=== PATIENT | female | born 1950 | race Caucasian/White ===

== ENCOUNTER 2017-12-10 | Inpatient (IN) | payer MEDICARE, MEDICAID ==
[2017-12-10] VITALS (7 sets, daily range): BP systolic 108–134; BP diastolic 56–86
[~2017-12-10] VITALS: Ht 167.6 cm; Wt 77.1 kg
--- NOTE | 2017-12-10 00:05 | Emergency Room Report ---
History of Present Illness General Chief Complaint: Dyspnea/Respdistress Source: Patient Present Illness HPI Patient presents by paramedics for complaints of shortness of breath Patient was found at a nearby park Obtaining full history is limited as the patient presents in respiratory distress Unknown medical history unknown medications Patient also had some midline chest pain Patient is coughing during triage denies any fevers denies any rash History of present illness is limited however Allergies: Coded Allergies: No Known Allergies (Unverified , 12/09/17) Patient History Limited by: medical condition Past Medical History: see triage record Pertinent Family History: unable to obtain Last Menstrual Period: na Now: No Reviewed Nursing Documentation: PMH: Agreed; PSxH: Agreed Nursing Documentation-PMH Past Medical History: No History, Except For Hx Hypertension: Yes Hx Asthma: Yes Hx COPD: Yes Review of Systems All Other Systems: limited - Other than the ones mentioned in the history of present illness all others are reviewed however they do stay limited due to the patient's mental status Physical Exam Vital Signs Date Time Temp Pulse Resp B/P (MAP) Pulse Ox O2 Delivery O2 Flow Rate FiO2 12/09/17 23:47 97.5 106 24 134/60 97 Sp02 EP Interpretation: reviewed, normal General Appearance: moderate distress - Appears short of breath Head: normocephalic, atraumatic Eyes: bilateral eye PERRL, bilateral eye EOMI ENT: hearing grossly normal, normal pharynx, TMs + canals normal, uvula midline Neck: full range of motion, supple, no meningismus, no bony tend Respiratory: no retraction, no accessory muscle use, wheezing - And crackles bilaterall, tachypneic Cardiovascular #1: normal peripheral pulses, regular rate, rhythm, no edema, no gallop, no JVD, no murmur Gastrointestinal: normal bowel sounds, non tender, soft, no mass, no organomegaly, non-distended, no guarding, no hernia, no pulsatile mass, no rebound Genitourinary: no CVA tenderness Musculoskeletal: normal inspection Neurologic: oriented x3, responsive, test center administrator III-XII nml as tested, motor strength/ tone normal, sensory intact Psychiatric: mood/affect normal Skin: normal color, no rash, warm/dry, palpation normal Lymphatic: normal inspection, no adenopathy Medical Decision Making Diagnostic Impression: Primary Impression: Dyspnea Additional Impression: Pneumonia ER Course Patient is a fairly complex patient with multiple differential to consideration including but not limited to cardiac cardiopulmonary and vascular emergencies Patient's x-ray shows concerning findings of possible infiltrate Blood work reveals elevated lactic acid patient given further IV hydration and antibiotics secondary to insurance request patient is transferred for continued inpatient care Labs Test 12/10/17 00:10 12/10/17 02:20 White Blood Count 8.8 K/UL (4.8-10.8) Red Blood Count 4.46 M/UL (4.20-5.40) Hemoglobin 13.2 G/DL (12.0-16.0) Hematocrit 38.6 % (37.0-47.0) Mean Corpuscular Volume 86 FL (80-99) Mean Corpuscular Hemoglobin 29.5 PG (27.0-31.0) Mean Corpuscular Hemoglobin Concent 34.1 G/DL (32.0-36.0) Red Cell Distribution Width 11.9 % (11.6-14.8) Platelet Count 270 K/UL (150-450) Mean Platelet Volume 8.2 FL (6.5-10.1) Neutrophils (%) (Auto) 59.5 % (45.0-75.0) Lymphocytes (%) (Auto) 32.7 % (20.0-45.0) Monocytes (%) (Auto) 6.6 % (1.0-10.0) Eosinophils (%) (Auto) 0.2 % (0.0-3.0) Basophils (%) (Auto) 1.1 % (0.0-2.0) Sodium Level 143 MMOL/L (136-145) Potassium Level 3.4 MMOL/L (3.5-5.1) Chloride Level 103 MMOL/L (98-107) Carbon Dioxide Level 23 MMOL/L (21-32) Anion Gap 17 mmol/L (5-15) Blood Urea Nitrogen 16 mg/dL (7-18) Creatinine 1.3 MG/DL (0.55-1.30) Estimat Glomerular Filtration Rate 41.0 mL/min (>60) Glucose Level 137 MG/DL (74-106) Lactic Acid Level 5.90 mmol/L (0.4-2.0) Calcium Level 10.1 MG/DL (8.5-10.1) Total Bilirubin 0.4 MG/DL (0.2-1.0) Aspartate Amino Transf (AST/SGOT) 19 U/L (15-37) Alanine Aminotransferase (ALT/SGPT) 22 U/L (12-78) Alkaline Phosphatase 79 U/L (46-116) Total Creatine Kinase 188 U/L (26-308) Creatine Kinase MB 1.6 NG/ML (0.0-3.6) Creatine Kinase MB Relative Index 0.8 Troponin I 0.000 ng/mL (0.000-0.056) Pro-B-Type Natriuretic Peptide 271 pg/mL (0-125) Total Protein 7.9 G/DL (6.4-8.2) Albumin 3.9 G/DL (3.4-5.0) Globulin 4.0 g/dL Albumin/Globulin Ratio 1.0 (1.0-2.7) Lipase 154 U/L (73-393) Rhythm Strip Diag. Results EP Interpretation: yes - 1 Rate: 110 Rhythm: no PVC's, no ectopy, other - Sinus tach Chest X-Ray Diagnostic Results Chest X-Ray Diagnostic Results : Chest X-Ray Ordered: Yes # of Views/Limited/Complete: 1 View Indication: Shortness of Breath EP Interpretation: Yes Interpretation: no effusion, no pneumothorax, other - Bilateral atelectasis Impression: Other - Bilateral Atelectasis/infiltrated Last Vital Signs Date Time Temp Pulse Resp B/P (MAP) Pulse Ox O2 Delivery O2 Flow Rate FiO2 12/09/17 23:47 97.5 106 24 134/60 97 Status: improved [facility] Condition: Improved Darrian Green DO Dec 10, 2017 00:05
[2017-12-10] MEDS ORDERED: Ipratropium 0.02% Inh Soln 2.5ml UD HHN ONE (00:15)
[2017-12-10] MEDS ORDERED: LORazepam Inj 2mg/ml 1ml IV ONE (00:15)
[2017-12-10] MEDS ORDERED: Albuterol ud Inhalation HHN ONE (00:15)
[2017-12-10 00:27] LABS: BASOPHILS % (AUTO) 1.1 % (0.0-2.0); EOSINOPHILS % (AUTO) 0.2 % (0.0-3.0); HEMATOCRIT 38.6 % (37.0-47.0); HEMOGLOBIN 13.2 G/DL (12.0-16.0); LYMPHOCYTES % (AUTO) 32.7 % (20.0-45.0); MEAN CORPUSCULAR VOLUME 86 FL (80-99); MONOCYTES % (AUTO) 6.6 % (1.0-10.0); NEUTROPHILS % (AUTO) 59.5 % (45.0-75.0); PLATELET COUNT 270 K/UL (150-450); RED BLOOD COUNT 4.46 M/UL (4.20-5.40); RED CELL DISTRIBUTION WIDTH 11.9 % (11.6-14.8); WHITE BLOOD COUNT 8.8 K/UL (4.8-10.8)
--- NOTE | 2017-12-10 00:36 | Diagnostic Imaging Report ---
EXAM: XR Chest, 1 View CLINICAL HISTORY: SOB TECHNIQUE: Frontal view of the chest. COMPARISON: No relevant prior studies available. FINDINGS: Lungs: No focal consolidation. Pleural space: Unremarkable. No pneumothorax. Heart: Cardiomegaly. Mediastinum: Unremarkable. Bones/joints: Chronic right rib fractures. IMPRESSION: No focal consolidation.
[2017-12-10 00:43] LABS: ANION GAP 17 mmol/L (5-15); BLOOD UREA NITROGEN 16 mg/dL (7-18); CALCIUM 10.1 MG/DL (8.5-10.1); CARBON DIOXIDE 23 MMOL/L (21-32); CHLORIDE 103 MMOL/L (98-107); CREATININE 1.3 MG/DL (0.55-1.30); POTASSIUM 3.4 MMOL/L (3.5-5.1); SODIUM 143 MMOL/L (136-145)
[2017-12-10 00:57] LABS: ALANINE AMINOTRANSFERASE 22 U/L (12-78); ALBUMIN 3.9 G/DL (3.4-5.0); ALKALINE PHOSPHATASE 79 U/L (46-116); ASPARTATE AMINO TRANSFERASE 19 U/L (15-37); BILIRUBIN,TOTAL 0.4 MG/DL (0.2-1.0); CKMB 1.6 NG/ML (0.0-3.6); CREATINE KINASE 188 U/L (26-308)
[2017-12-10] MEDS: Aspirin Baby 81mg ORAL SCH (09:17)
[2017-12-10] MEDS: Enoxaparin 40mg Inj SUBQ SCH (09:19)
--- NOTE | 2017-12-10 13:53 | Infectious Diseases Prog Note ---
Assessment/Plan Problems: (1) Pneumonia Assessment & Plan: with cough productive and wheezing, will start levaquin empirically and send sputum culture . (2) Dyspnea Assessment & Plan: suspect due to the above, V/Q scan is pending to rule out PE , will start levaquin to cover for pneumonia/bronchitis , continue inhalers as needed (3) COPD (chronic obstructive pulmonary disease) with acute bronchitis Assessment & Plan: will start antibiotics, continue inhales and oxygen as needed Subjective Allergies: Coded Allergies: No Known Allergies (Unverified , 12/09/17) Objective Vital Signs Last 24 Hour Vital Signs Date Time Temp Pulse Resp B/P (MAP) Pulse Ox O2 Delivery O2 Flow Rate FiO2 12/10/17 12:00 98.3 92 21 120/71 (87) 100 12/10/17 12:00 76 12/10/17 11:06 Venturi Mask 5.0 12/10/17 08:00 87 12/10/17 08:00 98.7 103 20 112/75 (87) 100 12/10/17 06:18 98.0 90 18 118/83 99 Room Air 5.0 100 12/10/17 04:30 98.0 83 16 111/80 100 Simple Mask 10.0 12/10/17 02:40 97.6 83 16 108/86 100 Simple Mask 10.0 12/10/17 00:40 108 23 98 Room Air 21 12/10/17 00:22 97.6 90 24 134/60 100 Simple Mask 10.0 12/10/17 00:22 90 30 Simple Mask 10.0 12/10/17 00:17 89 24 100 Simple Mask 10.0 12/10/17 00:11 89 24 Simple Mask 10.0 12/09/17 23:47 97.5 106 24 134/60 97 Height (Feet): 5 Height (Inches): 6.00 Weight (Pounds): 170 Microbiology Date/Time Source Procedure Growth Status 12/10/17 00:12 Nasal Nares Influenza Types A,B Antigen (KEISHA) - Final Complete Laboratory Tests Test 12/10/17 00:10 12/10/17 02:20 White Blood Count 8.8 K/UL (4.8-10.8) Red Blood Count 4.46 M/UL (4.20-5.40) Hemoglobin 13.2 G/DL (12.0-16.0) Hematocrit 38.6 % (37.0-47.0) Mean Corpuscular Volume 86 FL (80-99) Mean Corpuscular Hemoglobin 29.5 PG (27.0-31.0) Mean Corpuscular Hemoglobin Concent 34.1 G/DL (32.0-36.0) Red Cell Distribution Width 11.9 % (11.6-14.8) Platelet Count 270 K/UL (150-450) Mean Platelet Volume 8.2 FL (6.5-10.1) Neutrophils (%) (Auto) 59.5 % (45.0-75.0) Lymphocytes (%) (Auto) 32.7 % (20.0-45.0) Monocytes (%) (Auto) 6.6 % (1.0-10.0) Eosinophils (%) (Auto) 0.2 % (0.0-3.0) Basophils (%) (Auto) 1.1 % (0.0-2.0) Sodium Level 143 MMOL/L (136-145) Potassium Level 3.4 MMOL/L (3.5-5.1) L Chloride Level 103 MMOL/L (98-107) Carbon Dioxide Level 23 MMOL/L (21-32) Anion Gap 17 mmol/L (5-15) H Blood Urea Nitrogen 16 mg/dL (7-18) Creatinine 1.3 MG/DL (0.55-1.30) Estimat Glomerular Filtration Rate 41.0 mL/min (>60) Glucose Level 137 MG/DL (74-106) H Lactic Acid Level 5.90 mmol/L (0.4-2.0) H 2.20 mmol/L (0.66-2.22) Calcium Level 10.1 MG/DL (8.5-10.1) Total Bilirubin 0.4 MG/DL (0.2-1.0) Aspartate Amino Transf (AST/SGOT) 19 U/L (15-37) Alanine Aminotransferase (ALT/SGPT) 22 U/L (12-78) Alkaline Phosphatase 79 U/L (46-116) Total Creatine Kinase 188 U/L (26-308) Creatine Kinase MB 1.6 NG/ML (0.0-3.6) Creatine Kinase MB Relative Index 0.8 Troponin I 0.000 ng/mL (0.000-0.056) Pro-B-Type Natriuretic Peptide 271 pg/mL (0-125) H Total Protein 7.9 G/DL (6.4-8.2) Albumin 3.9 G/DL (3.4-5.0) Globulin 4.0 g/dL Albumin/Globulin Ratio 1.0 (1.0-2.7) Lipase 154 U/L (73-393) Current Medications Medications (Trade) Dose Ordered Sig/Palomo Route PRN Reason Start Time Stop Time Status Last Admin Dose Admin Acetaminophen (Tylenol) 650 mg Q4H PRN ORAL Mild Pain (Pain Scale 1-3) 12/10/17 08:00 01/09/18 07:59 12/10/17 09:37 Aspirin (ASA) 81 mg DAILY ORAL 12/10/17 09:00 01/09/18 08:59 12/10/17 09:17 Atenolol (Tenormin) 50 mg BID ORAL 12/10/17 18:00 01/09/18 17:59 Dextrose (Dextrose 50%) 25 ml Q30M PRN IV Hypoglycemia 12/10/17 08:00 01/09/18 07:59 Dextrose (Dextrose 50%) 50 ml Q30M PRN IV Hypoglycemia 12/10/17 08:00 01/09/18 07:59 Enoxaparin Sodium (Lovenox) 40 mg Q24H SUBQ 12/10/17 09:00 01/09/18 08:59 12/10/17 09:19 Famotidine (Pepcid) 40 mg DAILY ORAL 12/10/17 09:00 01/09/18 08:59 12/10/17 09:17 Ondansetron HCl (Zofran) 4 mg Q6H PRN IVP Nausea & Vomiting 12/10/17 08:00 01/09/18 07:59 Sodium Chloride 1,000 ml @ 50 mls/hr Q20H IVLG 12/10/17 08:54 01/09/18 08:53 12/10/17 09:17 Deonna Barkley M.D. Dec 10, 2017 13:53
--- NOTE | 2017-12-10 14:30 | History and Physical Report ---
DATE OF ADMISSION: 12/10/2017 REASON FOR ADMISSION: 1. Chest pain. 2. Shortness of breath. HISTORY OF PRESENT ILLNESS: The patient is a 67-year-old female, who presented to the emergency room for further evaluation and care of shortness of breath. The patient stated it has been chronic for the past two or three weeks. She was found by a nearby park. She was complaining of some mild shortness of breath with productive cough. She was admitted through the emergency room for possibility of pneumonia. She is lying comfortably with non-rebreather. ALLERGIES: No known drug allergies. PAST MEDICAL HISTORY: 1. Hypertension. 2. Asthma. 3. COPD. FAMILY HISTORY: Positive for hypertension. PAST SURGICAL HISTORY: Unobtainable. REVIEW OF SYSTEMS: NEUROLOGIC: The patient denies headache, change in vision, syncope or presyncopal episodes. CARDIOVASCULAR: The patient was having mild chest pressure, pain. No palpitations. PULMONARY: Shortness of breath with nonproductive cough. GASTROINTESTINAL/GENITOURINARY: No changes in urinary or bowel habits. No nausea, vomiting, or diarrhea. ENDOCRINOLOGY: No night sweats, fevers, or chills. LABORATORY DATA: Laboratories dated December 10, 2017, sodium 143, potassium 3.4, chloride 103, bicarb 23, BUN 16, and creatinine 1.3. Troponin 0. White cell count 8.8, hemoglobin 13.2, and platelet count 270. PHYSICAL EXAMINATION: VITAL SIGNS: Blood pressure 118/83, respiratory rate 18, pulse 90, temperature 98.0, and 100% oxygen saturation on non-rebreather. GENERAL: The patient awake, in mild distress. HEENT: Extraocular muscles intact. No lymphadenopathy noted. CARDIOVASCULAR: S1 and S2. No rubs or gallops. PULMONARY: upper rhonchi with good airway movement in all lung yeager with mild expiratory wheezing. ABDOMEN: Nondistended and nontender. EXTREMITIES: No edema. ASSESSMENT AND PLAN: 1. Chest pain/acute coronary syndrome. Troponin 0. At this time, the patient will be initiated on aspirin and beta-nancy and Cardiology Dr. Vaughan, has been consulted. 2. Shortness of breath, possibility of pneumonia. The patient has been given Levaquin with Infectious Disease to follow. VQ scan to rule out possibility of pulmonary embolism. Along with Pulmonary to evaluate underlying cause of acute shortness of breath. 3. Acute kidney injury versus chronic kidney disease. Creatinine 1.3. At this time, IV fluids have been initiated. 4. Hypertension. We will continue home dose atenolol. 5. DVT prophylaxis with Lovenox. Catalino Tinsley MD DR: CHANDLER JOB#: [id number] CC: SAMMI
--- NOTE | 2017-12-10 16:30 | Consultation ---
History of Present Illness General Date patient seen: Dec 10, 2017 Time patient seen: 16:20 Chief Complaint: Dyspnea/Respdistress Present Illness HPI 67 year old French female complain of dyspnea, recently was Dx w/ Right lobe PNA. She has hx of COPD, THIERRY. Pt placed on O2 mask @ 10 lpm. CXR No focal consolidation, troponin negative. Allergies: Coded Allergies: No Known Allergies (Unverified , 12/09/17) Patient History Healthcare decision maker Resuscitation status Advanced Directive on File Review of Systems Constitutional: Reports: no symptoms Eye: Reports: no symptoms ENT: Reports: no symptoms Respiratory: Reports: cough, shortness of breath, stridor, EDWARDS, sputum Cardiovascular: Reports: no symptoms Gastrointestinal: Reports: no symptoms Genitourinary: Reports: no symptoms Musculoskeletal: Reports: no symptoms Skin: Reports: no symptoms Psychiatric: Reports: no symptoms Neurological: Reports: no symptoms Endocrine: Reports: no symptoms Hematologic/Lymphatic: Reports: no symptoms Physical Exam General Appearance: no apparent distress, alert Lines, tubes and drains: peripheral HEENT: normocephalic, atraumatic, mucous membranes moist, PERRL, EOMI, pharynx normal, supple, no JVD Neck: non-tender, normal alignment, supple, normal inspection Respiratory/Chest: chest wall non-tender, lungs clear, normal breath sounds, no respiratory distress Cardiovascular/Chest: normal peripheral pulses, normal rate Abdomen: normal bowel sounds, non tender Extremities: normal range of motion, non-tender Neurologic: calibration specialist II-XII grossly normal, no motor/sensory deficits Last 24 Hour Vital Signs Date Time Temp Pulse Resp B/P (MAP) Pulse Ox O2 Delivery O2 Flow Rate FiO2 12/10/17 12:00 98.3 92 21 120/71 (87) 100 12/10/17 12:00 76 12/10/17 11:06 Venturi Mask 5.0 12/10/17 08:00 87 12/10/17 08:00 98.7 103 20 112/75 (87) 100 12/10/17 06:18 98.0 90 18 118/83 99 Room Air 5.0 100 12/10/17 04:30 98.0 83 16 111/80 100 Simple Mask 10.0 12/10/17 02:40 97.6 83 16 108/86 100 Simple Mask 10.0 12/10/17 00:40 108 23 98 Room Air 21 12/10/17 00:22 97.6 90 24 134/60 100 Simple Mask 10.0 12/10/17 00:22 90 30 Simple Mask 10.0 12/10/17 00:17 89 24 100 Simple Mask 10.0 12/10/17 00:11 89 24 Simple Mask 10.0 12/09/17 23:47 97.5 106 24 134/60 97 Laboratory Tests Test 12/10/17 00:10 12/10/17 02:20 12/10/17 14:40 White Blood Count 8.8 K/UL (4.8-10.8) Red Blood Count 4.46 M/UL (4.20-5.40) Hemoglobin 13.2 G/DL (12.0-16.0) Hematocrit 38.6 % (37.0-47.0) Mean Corpuscular Volume 86 FL (80-99) Mean Corpuscular Hemoglobin 29.5 PG (27.0-31.0) Mean Corpuscular Hemoglobin Concent 34.1 G/DL (32.0-36.0) Red Cell Distribution Width 11.9 % (11.6-14.8) Platelet Count 270 K/UL (150-450) Mean Platelet Volume 8.2 FL (6.5-10.1) Neutrophils (%) (Auto) 59.5 % (45.0-75.0) Lymphocytes (%) (Auto) 32.7 % (20.0-45.0) Monocytes (%) (Auto) 6.6 % (1.0-10.0) Eosinophils (%) (Auto) 0.2 % (0.0-3.0) Basophils (%) (Auto) 1.1 % (0.0-2.0) Sodium Level 143 MMOL/L (136-145) Potassium Level 3.4 MMOL/L (3.5-5.1) L Chloride Level 103 MMOL/L (98-107) Carbon Dioxide Level 23 MMOL/L (21-32) Anion Gap 17 mmol/L (5-15) H Blood Urea Nitrogen 16 mg/dL (7-18) Creatinine 1.3 MG/DL (0.55-1.30) Estimat Glomerular Filtration Rate 41.0 mL/min (>60) Glucose Level 137 MG/DL (74-106) H Lactic Acid Level 5.90 mmol/L (0.4-2.0) H 2.20 mmol/L (0.66-2.22) Calcium Level 10.1 MG/DL (8.5-10.1) Total Bilirubin 0.4 MG/DL (0.2-1.0) Aspartate Amino Transf (AST/SGOT) 19 U/L (15-37) Alanine Aminotransferase (ALT/SGPT) 22 U/L (12-78) Alkaline Phosphatase 79 U/L (46-116) Total Creatine Kinase 188 U/L (26-308) Creatine Kinase MB 1.6 NG/ML (0.0-3.6) Creatine Kinase MB Relative Index 0.8 Troponin I 0.000 ng/mL (0.000-0.056) Pro-B-Type Natriuretic Peptide 271 pg/mL (0-125) H Total Protein 7.9 G/DL (6.4-8.2) Albumin 3.9 G/DL (3.4-5.0) Globulin 4.0 g/dL Albumin/Globulin Ratio 1.0 (1.0-2.7) Lipase 154 U/L (73-393) Urine Opiates Screen Negative (NEGATIVE) Urine Barbiturates Screen Negative (NEGATIVE) Phencyclidine (PCP) Screen Negative (NEGATIVE) Urine Amphetamines Screen Negative (NEGATIVE) Urine Benzodiazepines Screen Negative (NEGATIVE) Urine Cocaine Screen Negative (NEGATIVE) Urine Marijuana (THC) Screen Negative (NEGATIVE) Microbiology Date/Time Source Procedure Growth Status 12/10/17 00:12 Nasal Nares Influenza Types A,B Antigen (KEISHA) - Final Complete Height (Feet): 5 Height (Inches): 6.00 Weight (Pounds): 170 Medications Current Medications Medications (Trade) Dose Ordered Sig/Palomo Route PRN Reason Start Time Stop Time Status Last Admin Dose Admin Acetaminophen (Tylenol) 650 mg Q4H PRN ORAL Mild Pain (Pain Scale 1-3) 12/10/17 08:00 01/09/18 07:59 12/10/17 09:37 Aspirin (ASA) 81 mg DAILY ORAL 12/10/17 09:00 01/09/18 08:59 12/10/17 09:17 Atenolol (Tenormin) 50 mg BID ORAL 12/10/17 18:00 01/09/18 17:59 Dextrose (Dextrose 50%) 25 ml Q30M PRN IV Hypoglycemia 12/10/17 08:00 01/09/18 07:59 Dextrose (Dextrose 50%) 50 ml Q30M PRN IV Hypoglycemia 12/10/17 08:00 01/09/18 07:59 Enoxaparin Sodium (Lovenox) 40 mg Q24H SUBQ 12/10/17 09:00 01/09/18 08:59 12/10/17 09:19 Famotidine (Pepcid) 40 mg DAILY ORAL 12/10/17 09:00 01/09/18 08:59 12/10/17 09:17 Levofloxacin 150 ml @ 100 mls/hr Q24H IVPB 12/11/17 00:00 12/18/17 00:00 Ondansetron HCl (Zofran) 4 mg Q6H PRN IVP Nausea & Vomiting 12/10/17 08:00 01/09/18 07:59 Sodium Chloride 1,000 ml @ 50 mls/hr Q20H IVLG 12/10/17 08:54 01/09/18 08:53 12/10/17 09:17 Assessment/Plan Status: stable, progressing Assessment/Plan Assessment (1) Pneumonia (2) Dyspnea (3) COPD (chronic obstructive pulmonary disease) with acute bronchitis (4) Chest pain Plan Serial Troponin/EKG Aspirin Statin nitro prn chest pain Outpatient stress test Abx per ID for PNA IV fluids Continue atenolol Echocardiogram DVT/GI ppx Migel Vaughan MD Dec 10, 2017 16:30
--- NOTE | 2017-12-10 16:42 | Diagnostic Imaging Report ---
EXAM: NM Lung Perfusion and Ventilation Scan CLINICAL HISTORY: Shortness of breath TECHNIQUE: Nuclear Medicine ventilation and perfusion images of the lungs were obtained in multiple projections following inhalation of 42 mCi Tc99m- DTPA at 15:30, followed by injection of 5.8 mCi of Tc99m MAA via left antecubital IV. COMPARISON: Chest x-ray dated 12/10/18 FINDINGS: Ventilation: Abnormal central cupping of the radiotracer on both perfusion and ventilation imaging. No ventilation defects. Perfusion: Abnormal central clumping of the radiotracer on both perfusion and ventilation imaging. This limits evaluation for perfusion defects. No large segmental perfusion defect identified. IMPRESSION: Abnormal central clumping of the radiotracer on both perfusion and ventilation imaging. This is nonspecific and may be related to micro- aggregation of the radiotracer related to technical factors although this finding can also be seen with COPD. However, this exam remains nondiagnostic for evaluation of PE.
--- NOTE | 2017-12-10 17:49 | Pulmonology Progress Note ---
Assessment/Plan Assessment/Plan Pulmonary Consultation HPI Patient is a 67 year old French female complain of dyspnea, recently was Dx w/ Right lobe PNA. She has hx of COPD, THIERRY. Pt placed on O2 mask @ 10 lpm. CXR No focal consolidation, troponin negative. Allergies: Coded Allergies: No Known Allergies (Unverified , 12/09/17) Patient History Healthcare decision maker Resuscitation status Advanced Directive on File Review of Systems Constitutional: Reports: no symptoms Eye: Reports: no symptoms ENT: Reports: no symptoms Respiratory: Reports: cough, shortness of breath, stridor, EDWARDS, sputum Cardiovascular: Reports: no symptoms Gastrointestinal: Reports: no symptoms Genitourinary: Reports: no symptoms Musculoskeletal: Reports: no symptoms Skin: Reports: no symptoms Psychiatric: Reports: no symptoms Neurological: Reports: no symptoms Endocrine: Reports: no symptoms Hematologic/Lymphatic: Reports: no symptoms Physical Exam General Appearance: no apparent distress, alert Lines, tubes and drains: peripheral HEENT: normocephalic, atraumatic, mucous membranes moist, PERRL, EOMI, pharynx normal, supple, no JVD Neck: non-tender, normal alignment, supple, normal inspection Respiratory/Chest: chest wall non-tender, lungs clear, normal breath sounds, no respiratory distress Cardiovascular/Chest: normal peripheral pulses, normal rate Abdomen: normal bowel sounds, non tender Extremities: normal range of motion, non-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, no motor/sensory deficits Last 24 Hour Vital Signs Date Time Temp Pulse Resp B/P (MAP) Pulse Ox O2 Delivery O2 Flow Rate FiO2 12/10/17 12:00 98.3 92 21 120/71 (87) 100 12/10/17 12:00 76 12/10/17 11:06 Venturi Mask 5.0 12/10/17 08:00 87 12/10/17 08:00 98.7 103 20 112/75 (87) 100 12/10/17 06:18 98.0 90 18 118/83 99 Room Air 5.0 100 12/10/17 04:30 98.0 83 16 111/80 100 Simple Mask 10.0 12/10/17 02:40 97.6 83 16 108/86 100 Simple Mask 10.0 12/10/17 00:40 108 23 98 Room Air 21 10/27/18 00:22 97.6 90 24 134/60 100 Simple Mask 10.0 12/10/17 00:22 90 30 Simple Mask 10.0 12/10/17 00:17 89 24 100 Simple Mask 10.0 12/10/17 00:11 89 24 Simple Mask 10.0 12/09/17 23:47 97.5 106 24 134/60 97 Laboratory Tests Test 12/10/17 00:10 12/10/17 02:20 12/10/17 14:40 White Blood Count 8.8 K/UL (4.8-10.8) Red Blood Count 4.46 M/UL (4.20-5.40) Hemoglobin 13.2 G/DL (12.0-16.0) Hematocrit 38.6 % (37.0-47.0) Mean Corpuscular Volume 86 FL (80-99) Mean Corpuscular Hemoglobin 29.5 PG (27.0-31.0) Mean Corpuscular Hemoglobin Concent 34.1 G/DL (32.0-36.0) Red Cell Distribution Width 11.9 % (11.6-14.8) Platelet Count 270 K/UL (150-450) Mean Platelet Volume 8.2 FL (6.5-10.1) Neutrophils (%) (Auto) 59.5 % (45.0-75.0) Lymphocytes (%) (Auto) 32.7 % (20.0-45.0) Monocytes (%) (Auto) 6.6 % (1.0-10.0) Eosinophils (%) (Auto) 0.2 % (0.0-3.0) Basophils (%) (Auto) 1.1 % (0.0-2.0) Sodium Level 143 MMOL/L (136-145) Potassium Level 3.4 MMOL/L (3.5-5.1) L Chloride Level 103 MMOL/L (98-107) Carbon Dioxide Level 23 MMOL/L (21-32) Anion Gap 17 mmol/L (5-15) H Blood Urea Nitrogen 16 mg/dL (7-18) Creatinine 1.3 MG/DL (0.55-1.30) Estimat Glomerular Filtration Rate 41.0 mL/min (>60) Glucose Level 137 MG/DL (74-106) H Lactic Acid Level 5.90 mmol/L (0.4-2.0) H 2.20 mmol/L (0.66-2.22) Calcium Level 10.1 MG/DL (8.5-10.1) Total Bilirubin 0.4 MG/DL (0.2-1.0) Aspartate Amino Transf (AST/SGOT) 19 U/L (15-37) Alanine Aminotransferase (ALT/SGPT) 22 U/L (12-78) Alkaline Phosphatase 79 U/L (46-116) Total Creatine Kinase 188 U/L (26-308) Creatine Kinase MB 1.6 NG/ML (0.0-3.6) Creatine Kinase MB Relative Index 0.8 Troponin I 0.000 ng/mL (0.000-0.056) Pro-B-Type Natriuretic Peptide 271 pg/mL (0-125) H Total Protein 7.9 G/DL (6.4-8.2) Albumin 3.9 G/DL (3.4-5.0) Globulin 4.0 g/dL Albumin/Globulin Ratio 1.0 (1.0-2.7) Lipase 154 U/L (73-393) Urine Opiates Screen Negative (NEGATIVE) Urine Barbiturates Screen Negative (NEGATIVE) Phencyclidine (PCP) Screen Negative (NEGATIVE) Urine Amphetamines Screen Negative (NEGATIVE) Urine Benzodiazepines Screen Negative (NEGATIVE) Urine Cocaine Screen Negative (NEGATIVE) Urine Marijuana (THC) Screen Negative (NEGATIVE) Microbiology Date/Time Source Procedure Growth Status 12/10/17 00:12 Nasal Nares Influenza Types A,B Antigen (KEISHA) - Final Complete CXR: No infiltgrates VQ: Non diagnostic Height (Feet): 5 Height (Inches): 6.00 Weight (Pounds): 170 Medications Current Medications Medications (Trade) Dose Ordered Sig/Palomo Route PRN Reason Start Time Stop Time Status Last Admin Dose Admin Acetaminophen (Tylenol) 650 mg Q4H PRN ORAL Mild Pain (Pain Scale 1-3) 12/10/17 08:00 01/09/18 07:59 12/10/17 09:37 Aspirin (ASA) 81 mg DAILY ORAL 12/10/17 09:00 01/09/18 08:59 12/10/17 09:17 Atenolol (Tenormin) 50 mg BID ORAL 12/10/17 18:00 01/09/18 17:59 Dextrose (Dextrose 50%) 25 ml Q30M PRN IV Hypoglycemia 12/10/17 08:00 01/09/18 07:59 Dextrose (Dextrose 50%) 50 ml Q30M PRN IV Hypoglycemia 12/10/17 08:00 01/09/18 07:59 Enoxaparin Sodium (Lovenox) 40 mg Q24H SUBQ 12/10/17 09:00 01/09/18 08:59 12/10/17 09:19 Famotidine (Pepcid) 40 mg DAILY ORAL 12/10/17 09:00 01/09/18 08:59 12/10/17 09:17 Levofloxacin 150 ml @ 100 mls/hr Q24H IVPB 12/11/17 00:00 12/18/17 00:00 Ondansetron HCl (Zofran) 4 mg Q6H PRN IVP Nausea & Vomiting 12/10/17 08:00 01/09/18 07:59 Sodium Chloride 1,000 ml @ 50 mls/hr Q20H IVLG 12/10/17 08:54 01/09/18 08:53 12/10/17 09:17 Assessment (1) Pneumonia (2) Dyspnea (3) COPD (chronic obstructive pulmonary disease) with acute bronchitis (4) Chest pain Plan Continue Curret AB/HHN Titrate O2 Serial Troponin/EKG Aspirin Statin nitro prn chest pain Outpatient stress test Abx per ID for PNA IV fluids Continue atenolol Echocardiogram DVT/GI ppx Subjective ROS Limited/Unobtainable: Yes Allergies: Coded Allergies: No Known Allergies (Unverified , 12/09/17) Objective Last 24 Hour Vital Signs Date Time Temp Pulse Resp B/P (MAP) Pulse Ox O2 Delivery O2 Flow Rate FiO2 12/10/17 17:17 71 117/73 12/10/17 16:00 73 12/10/17 16:00 98.0 71 20 117/73 (88) 99 12/10/17 12:00 98.3 92 21 120/71 (87) 100 12/10/17 12:00 76 12/10/17 11:06 Venturi Mask 5.0 12/10/17 08:00 87 12/10/17 08:00 98.7 103 20 112/75 (87) 100 12/10/17 06:18 98.0 90 18 118/83 99 Room Air 5.0 100 12/10/17 04:30 98.0 83 16 111/80 100 Simple Mask 10.0 12/10/17 02:40 97.6 83 16 108/86 100 Simple Mask 10.0 12/10/17 00:40 108 23 98 Room Air 21 12/10/17 00:22 97.6 90 24 134/60 100 Simple Mask 10.0 12/10/17 00:22 90 30 Simple Mask 10.0 12/10/17 00:17 89 24 100 Simple Mask 10.0 12/10/17 00:11 89 24 Simple Mask 10.0 12/09/17 23:47 97.5 106 24 134/60 97 Microbiology Date/Time Source Procedure Growth Status 12/10/17 00:12 Nasal Nares Influenza Types A,B Antigen (KEISHA) - Final Complete Laboratory Tests 12/10/17 00:10: White Blood Count 8.8, Red Blood Count 4.46, Hemoglobin 13.2, Hematocrit 38.6, Mean Corpuscular Volume 86, Mean Corpuscular Hemoglobin 29.5, Mean Corpuscular Hemoglobin Concent 34.1, Red Cell Distribution Width 11.9, Platelet Count 270, Mean Platelet Volume 8.2, Neutrophils (%) (Auto) 59.5, Lymphocytes (%) (Auto) 32.7, Monocytes (%) (Auto) 6.6, Eosinophils (%) (Auto) 0.2, Basophils (%) (Auto ) 1.1, Sodium Level 143, Potassium Level 3.4L, Chloride Level 103, Carbon Dioxide Level 23, Anion Gap 17H, Blood Urea Nitrogen 16, Creatinine 1.3, Estimat Glomerular Filtration Rate 41.0, Glucose Level 137H, Lactic Acid Level 5.90H, Calcium Level 10.1, Total Bilirubin 0.4, Aspartate Amino Transf (AST/SGOT ) 19, Alanine Aminotransferase (ALT/SGPT) 22, Alkaline Phosphatase 79, Total Creatine Kinase 188, Creatine Kinase MB 1.6, Creatine Kinase MB Relative Index 0.8, Troponin I 0.000, Pro-B-Type Natriuretic Peptide 271H, Total Protein 7.9, Albumin 3.9, Globulin 4.0, Albumin/Globulin Ratio 1.0, Lipase 154 12/10/17 02:20: Lactic Acid Level 2.20 12/10/17 14:40: Urine Opiates Screen Negative, Urine Barbiturates Screen Negative, Phencyclidine (PCP) Screen Negative, Urine Amphetamines Screen Negative, Urine Benzodiazepines Screen Negative, Urine Cocaine Screen Negative, Urine Marijuana (THC) Screen Negative Current Medications Medications (Trade) Dose Ordered Sig/Palomo Route PRN Reason Start Time Stop Time Status Last Admin Dose Admin Acetaminophen (Tylenol) 650 mg Q4H PRN ORAL Mild Pain (Pain Scale 1-3) 12/10/17 08:00 01/09/18 07:59 12/10/17 09:37 Aspirin (ASA) 81 mg DAILY ORAL 12/10/17 09:00 01/09/18 08:59 12/10/17 09:17 Atenolol (Tenormin) 50 mg BID ORAL 12/10/17 18:00 01/09/18 17:59 12/10/17 17:17 Dextrose (Dextrose 50%) 25 ml Q30M PRN IV Hypoglycemia 12/10/17 08:00 01/09/18 07:59 Dextrose (Dextrose 50%) 50 ml Q30M PRN IV Hypoglycemia 12/10/17 08:00 01/09/18 07:59 Enoxaparin Sodium (Lovenox) 40 mg Q24H SUBQ 12/10/17 09:00 01/09/18 08:59 12/10/17 09:19 Famotidine (Pepcid) 40 mg DAILY ORAL 12/10/17 09:00 01/09/18 08:59 12/10/17 09:17 Levofloxacin 150 ml @ 100 mls/hr Q24H IVPB 12/11/17 00:00 12/18/17 00:00 Ondansetron HCl (Zofran) 4 mg Q6H PRN IVP Nausea & Vomiting 12/10/17 08:00 01/09/18 07:59 Sodium Chloride 1,000 ml @ 50 mls/hr Q20H IVLG 12/10/17 08:54 01/09/18 08:53 12/10/17 09:17 Migel Woo MD Dec 10, 2017 17:49
--- NOTE | 2017-12-10 22:45 | Consultation ---
DATE OF CONSULTATION: 12/10/2017 INFECTIOUS DISEASE CONSULTATION CONSULTING PHYSICIAN: Deonna Barkley M.D. REQUESTING PHYSICIAN: Catalino Tinsley M.D. REASON FOR CONSULTATION: Pneumonia with bronchitis. Recommendation for antibiotics treatment. HISTORY OF PRESENT ILLNESS: The patient is a 67-year-old, Norwegian-speaking female with past medical history of COPD, asthma, and hypertension was sent to [facility] by paramedics for shortness of breath and dyspnea [place]. The patient was short of breath. Paramedics were called via bystander and she was brought into [facility] emergency room for evaluation. The patient had temperature of 97.5 with pulse of 106, O2 saturation of 97% in the emergency room. She had wheezing and difficulty talking. She received some neck treatment, oxygen, and antibiotics and admitted to the hospital for further evaluation and management. An Infectious Disease consult was requested for antibiotics treatment and further care. REVIEW OF SYSTEMS: A 14-point of system reviewed were all negative apart from the one I mentioned above in my History and Physical. PAST MEDICAL HISTORY: Significant for COPD, asthma, and hypertension. PAST SURGICAL HISTORY: Not on record. SOCIAL HISTORY: Unable to obtain. The patient is Norwegian speaker. FAMILY HISTORY: Unable to obtain. ALLERGIES: She has no known allergy as per the records. LABORATORY AND DIAGNOSTIC DATA: Labs showed white count of 8.8, hemoglobin of 13.2, platelet count of 270. BUN of 16 and creatinine of 1.3. AST of 19, ALT of 22, alkaline phosphatase 79. Microbiology, influenza screening A and B both negative. IMAGING: Chest x-ray showed no focal consolidation, chronic right rib fractures. PHYSICAL EXAMINATION: VITAL SIGNS: Temperature 98.3, pulse 92, respirations 21, blood pressure 120/71, saturation 100% on Venturi mask with FiO2 of 100%. GENERAL: Middle-aged female, lying in bed, coughing and wheezing on Venturi mask. HEENT: Normocephalic atraumatic. Pupils reactive to light. Moist oral mucosa. No exudate. NECK: Supple. No lymphadenopathy. CARDIOVASCULAR: Regular rate and rhythm. No murmur or gallop. LUNGS: She had diminished breathing sound on both side with wheezing and crackles. Normal breathing efforts. ABDOMEN: Soft, nontender, nondistended. Normal bowel sounds. No hepatosplenomegaly or ascites. EXTREMITIES: Trace edema. No cyanosis. She had callus on the big toe. SKIN: No rash. No hives. ASSESSMENT AND RECOMMENDATION: 1. Pneumonia with productive cough and wheezing. We will start Levaquin empirically and send sputum culture. 2. Dyspnea suspect due to the above. V/Q scan is pending to rule out PE. We will start Levaquin to cover for pneumonia and bronchitis. Continue inhalers as needed. 3. COPD with acute bronchitis. We will start antibiotics. Continue inhaler and oxygen as needed. May need small dose of steroid. Thank you for the consultation. ID will continue to follow. Please feel free to call with any question. Deonna Barkley M.D. DR: Mitzy JOB#: [id number] CC:
--- NOTE | 2017-12-10 23:18 | Consultation ---
History of Present Illness General Chief Complaint: Dyspnea/Respdistress Present Illness HPI 67-year-old, Nauruan-speaking female with past medical history of COPD, asthma , and hypertension was bi to [facility] by paramedics for dyspnea. the pt has severe anxiety an panic attack like sxs. the pt stated that she was [facility] and now came back to [place] since her daughter kick her out and stated that they dont need her. the pt has insomnia and depressed mood. Allergies: Coded Allergies: No Known Allergies (Unverified , 12/09/17) Medication History Scheduled Atenolol* (Tenormin*), 50 MG ORAL Q12HR, (Reported) Pantoprazole* (Protonix*), 40 MG ORAL DAILY, (Reported) Patient History Limited by: medical condition History Provided By: Patient, Medical Record, PMD Healthcare decision maker Resuscitation status Advanced Directive on File Past Medical/Surgical History Past Medical/Surgical History: (1) Dyspnea (2) Pneumonia (3) COPD (chronic obstructive pulmonary disease) with acute bronchitis (4) Panic anxiety syndrome Review of Systems Psychiatric: Reports: prior hx, anxiety, depressed feelings Physical Exam General Appearance: alert, moderate distress, agitated Neurologic: oriented x 3, responsive, depressed affect Last 24 Hour Vital Signs Date Time Temp Pulse Resp B/P (MAP) Pulse Ox O2 Delivery O2 Flow Rate FiO2 12/10/17 17:17 71 117/73 12/10/17 16:00 73 12/10/17 16:00 98.0 71 20 117/73 (88) 99 12/10/17 12:00 98.3 92 21 120/71 (87) 100 12/10/17 12:00 76 12/10/17 11:06 Venturi Mask 5.0 12/10/17 08:00 87 12/10/17 08:00 98.7 103 20 112/75 (87) 100 12/10/17 06:18 98.0 90 18 118/83 99 Room Air 5.0 100 12/10/17 04:30 98.0 83 16 111/80 100 Simple Mask 10.0 12/10/17 02:40 97.6 83 16 108/86 100 Simple Mask 10.0 12/10/17 00:40 108 23 98 Room Air 21 12/10/17 00:22 97.6 90 24 134/60 100 Simple Mask 10.0 12/10/17 00:22 90 30 Simple Mask 10.0 12/10/17 00:17 89 24 100 Simple Mask 10.0 12/10/17 00:11 89 24 Simple Mask 10.0 12/09/17 23:47 97.5 106 24 134/60 97 Intake and Output 12/09/17 12/10/17 19:00 07:00 # Voids 1 Laboratory Tests Test 12/10/17 00:10 12/10/17 02:20 12/10/17 14:40 White Blood Count 8.8 K/UL (4.8-10.8) Red Blood Count 4.46 M/UL (4.20-5.40) Hemoglobin 13.2 G/DL (12.0-16.0) Hematocrit 38.6 % (37.0-47.0) Mean Corpuscular Volume 86 FL (80-99) Mean Corpuscular Hemoglobin 29.5 PG (27.0-31.0) Mean Corpuscular Hemoglobin Concent 34.1 G/DL (32.0-36.0) Red Cell Distribution Width 11.9 % (11.6-14.8) Platelet Count 270 K/UL (150-450) Mean Platelet Volume 8.2 FL (6.5-10.1) Neutrophils (%) (Auto) 59.5 % (45.0-75.0) Lymphocytes (%) (Auto) 32.7 % (20.0-45.0) Monocytes (%) (Auto) 6.6 % (1.0-10.0) Eosinophils (%) (Auto) 0.2 % (0.0-3.0) Basophils (%) (Auto) 1.1 % (0.0-2.0) Sodium Level 143 MMOL/L (136-145) Potassium Level 3.4 MMOL/L (3.5-5.1) L Chloride Level 103 MMOL/L (98-107) Carbon Dioxide Level 23 MMOL/L (21-32) Anion Gap 17 mmol/L (5-15) H Blood Urea Nitrogen 16 mg/dL (7-18) Creatinine 1.3 MG/DL (0.55-1.30) Estimat Glomerular Filtration Rate 41.0 mL/min (>60) Glucose Level 137 MG/DL (74-106) H Lactic Acid Level 5.90 mmol/L (0.4-2.0) H 2.20 mmol/L (0.66-2.22) Calcium Level 10.1 MG/DL (8.5-10.1) Total Bilirubin 0.4 MG/DL (0.2-1.0) Aspartate Amino Transf (AST/SGOT) 19 U/L (15-37) Alanine Aminotransferase (ALT/SGPT) 22 U/L (12-78) Alkaline Phosphatase 79 U/L (46-116) Total Creatine Kinase 188 U/L (26-308) Creatine Kinase MB 1.6 NG/ML (0.0-3.6) Creatine Kinase MB Relative Index 0.8 Troponin I 0.000 ng/mL (0.000-0.056) Pro-B-Type Natriuretic Peptide 271 pg/mL (0-125) H Total Protein 7.9 G/DL (6.4-8.2) Albumin 3.9 G/DL (3.4-5.0) Globulin 4.0 g/dL Albumin/Globulin Ratio 1.0 (1.0-2.7) Lipase 154 U/L (73-393) Urine Opiates Screen Negative (NEGATIVE) Urine Barbiturates Screen Negative (NEGATIVE) Phencyclidine (PCP) Screen Negative (NEGATIVE) Urine Amphetamines Screen Negative (NEGATIVE) Urine Benzodiazepines Screen Negative (NEGATIVE) Urine Cocaine Screen Negative (NEGATIVE) Urine Marijuana (THC) Screen Negative (NEGATIVE) Microbiology Date/Time Source Procedure Growth Status 12/10/17 00:12 Nasal Nares Influenza Types A,B Antigen (KEISHA) - Final Complete Height (Feet): 5 Height (Inches): 6.00 Weight (Pounds): 170 Medications Current Medications Medications (Trade) Dose Ordered Sig/Palomo Route PRN Reason Start Time Stop Time Status Last Admin Dose Admin Acetaminophen (Tylenol) 650 mg Q4H PRN ORAL Mild Pain (Pain Scale 1-3) 12/10/17 08:00 01/09/18 07:59 12/10/17 09:37 Aspirin (ASA) 81 mg DAILY ORAL 12/10/17 09:00 01/09/18 08:59 12/10/17 09:17 Atenolol (Tenormin) 50 mg BID ORAL 12/10/17 18:00 01/09/18 17:59 12/10/17 17:17 Dextrose (Dextrose 50%) 25 ml Q30M PRN IV Hypoglycemia 12/10/17 08:00 01/09/18 07:59 Dextrose (Dextrose 50%) 50 ml Q30M PRN IV Hypoglycemia 12/10/17 08:00 01/09/18 07:59 Enoxaparin Sodium (Lovenox) 40 mg Q24H SUBQ 12/10/17 09:00 01/09/18 08:59 12/10/17 09:19 Famotidine (Pepcid) 40 mg DAILY ORAL 12/10/17 09:00 01/09/18 08:59 12/10/17 09:17 Levofloxacin 150 ml @ 100 mls/hr Q24H IVPB 12/11/17 00:00 12/18/17 00:00 Ondansetron HCl (Zofran) 4 mg Q6H PRN IVP Nausea & Vomiting 12/10/17 08:00 01/09/18 07:59 Sodium Chloride 1,000 ml @ 50 mls/hr Q20H IVLG 12/10/17 08:54 01/09/18 08:53 12/10/17 09:17 Assessment/Plan Problem List: (1) Panic anxiety syndrome ICD Codes: F41.0 - Panic disorder [episodic paroxysmal anxiety] SNOMED: 098649770 Assessment/Plan lexapro 10mg q daily klonopin 1mg qhs provided ro/Mick Hardin MD Dec 10, 2017 23:18
[2017-12-10] MEDS ORDERED: HYDROcodone/Acetamin 10/325 tab ORAL PRN (23:45)
[2017-12-11] VITALS: BP 101/59
[2017-12-11] MEDS ORDERED: metroNIDAZOLE 500mg tab ORAL SCH ×3 (01:00→14:00)
[2017-12-11] MEDS: HYDROcodone/Acetamin 10/325 tab ORAL PRN ×3 (01:21→20:21)
[2017-12-11] MEDS: Albuterol/Ipratropium 3ml neb HHN SCH ×6 (03:26→23:30)
[2017-12-11 04:00] VITALS: BP 107/62
--- NOTE | 2017-12-11 07:10 | Nephrology Progress Note ---
Assessment/Plan Assessment/Plan A/P 1) SOB/PNA- Abx and inhalers - much improved - Pulm and ID to follow - DC en to SNF 2) Chest Pain- MD ruled out - appreciate cardiology assistance 3) Psy history- defer to psychiatry 4) DVT prophylaxis with lovenox 5) HTN stable All AM labs pending Subjective Date patient seen: Dec 11, 2017 Time patient seen: 07:07 ROS Limited/Unobtainable: No Respiratory: Reports: shortness of breath Allergies: Coded Allergies: No Known Allergies (Unverified , 12/09/17) Subjective Patient resting well and sleeping comfortably Objective Last 24 Hour Vital Signs Date Time Temp Pulse Resp B/P (MAP) Pulse Ox O2 Delivery O2 Flow Rate FiO2 12/11/17 04:00 58 12/11/17 04:00 97.5 61 20 107/62 (77) 99 12/11/17 03:32 65 22 98 Room Air 21 12/11/17 03:29 100 Simple Mask 7.0 12/11/17 03:29 Simple Mask 7.0 12/11/17 03:26 68 20 100 Simple Mask 10.0 12/11/17 00:00 60 12/11/17 00:00 98.4 64 21 101/59 (73) 100 12/10/17 21:00 Venturi Mask 5.0 12/10/17 20:00 99.1 69 20 111/56 (74) 99 12/10/17 20:00 67 12/10/17 17:17 71 117/73 12/10/17 16:00 73 12/10/17 16:00 98.0 71 20 117/73 (88) 99 12/10/17 12:00 98.3 92 21 120/71 (87) 100 12/10/17 12:00 76 12/10/17 11:06 Venturi Mask 5.0 12/10/17 08:00 87 12/10/17 08:00 98.7 103 20 112/75 (87) 100 Intake and Output 12/10/17 12/11/17 19:00 07:00 Intake Total 400 ml Balance 400 ml Intake Oral 400 ml # Voids 2 5 Laboratory Tests 12/10/17 14:40: Urine Opiates Screen Negative, Urine Barbiturates Screen Negative, Phencyclidine (PCP) Screen Negative, Urine Amphetamines Screen Negative, Urine Benzodiazepines Screen Negative, Urine Cocaine Screen Negative, Urine Marijuana (THC) Screen Negative 12/11/17 05:55: White Blood Count [Pending], Red Blood Count [Pending], Hemoglobin [Pending], Hematocrit [Pending], Mean Corpuscular Volume [Pending], Mean Corpuscular Hemoglobin [Pending], Mean Corpuscular Hemoglobin Concent [Pending], Red Cell Distribution Width [Pending], Platelet Count [Pending], Mean Platelet Volume [ Pending], Neutrophils (%) (Auto) [Pending], Lymphocytes (%) (Auto) [Pending], Monocytes (%) (Auto) [Pending], Eosinophils (%) (Auto) [Pending], Basophils (%) (Auto) [Pending], Sodium Level [Pending], Potassium Level [Pending], Chloride Level [Pending], Carbon Dioxide Level [Pending], Blood Urea Nitrogen [Pending], Creatinine [Pending], Estimat Glomerular Filtration Rate [Pending], Glucose Level [Pending], Calcium Level [Pending] Height (Feet): 5 Height (Inches): 6.00 Weight (Pounds): 170 General Appearance: no apparent distress EENT: normal ENT inspection Neck: normal alignment, supple Cardiovascular: normal rate, regular rhythm Respiratory/Chest: expiratory wheezing Abdomen: non tender, soft Edema: no edema noted Arm (L), no edema noted Arm (R), no edema noted Leg (L), no edema noted Leg (R), no edema noted Pedal (L), no edema noted Pedal (R), no edema noted Generalized Catalino Tinsley MD Dec 11, 2017 07:10
[2017-12-11 07:11] LABS: BASOPHILS % (AUTO) 0.9 % (0.0-2.0); EOSINOPHILS % (AUTO) 1.2 % (0.0-3.0); HEMATOCRIT 35.7 % (37.0-47.0); HEMOGLOBIN 11.8 G/DL (12.0-16.0); LYMPHOCYTES % (AUTO) 34.3 % (20.0-45.0); MEAN CORPUSCULAR VOLUME 88 FL (80-99); MONOCYTES % (AUTO) 7.5 % (1.0-10.0); NEUTROPHILS % (AUTO) 56.1 % (45.0-75.0); PLATELET COUNT 228 K/UL (150-450); RED BLOOD COUNT 4.06 M/UL (4.20-5.40); RED CELL DISTRIBUTION WIDTH 12.4 % (11.6-14.8)
[2017-12-11 07:27] LABS: ANION GAP 6 mmol/L (5-15); BLOOD UREA NITROGEN 12 mg/dL (7-18); CALCIUM 8.8 MG/DL (8.5-10.1); CARBON DIOXIDE 27 MMOL/L (21-32); CHLORIDE 105 MMOL/L (98-107); CREATININE 0.8 MG/DL (0.55-1.30); POTASSIUM 4.5 MMOL/L (3.5-5.1); SODIUM 138 MMOL/L (136-145)
[2017-12-11 08:00] VITALS: BP 95/54
[2017-12-11] MEDS: Aspirin Baby 81mg ORAL SCH (08:15)
[2017-12-11] MEDS: Enoxaparin 40mg Inj SUBQ SCH (08:17)
[2017-12-11] MEDS ORDERED: Atenolol 25mg tab ORAL SCH (09:00)
[2017-12-11] MEDS ORDERED: Tubing IV Secondary IV ONE (10:45)
[2017-12-11 12:00] VITALS: BP 93/52
--- NOTE | 2017-12-11 13:49 | Infectious Diseases Prog Note ---
Assessment/Plan Problems: (1) Pneumonia Assessment & Plan: with cough productive and wheezing, continue levaquin empirically and send sputum culture . (2) Dyspnea Assessment & Plan: suspect due to the above, and due to anxiety , V/Q scan is negative for PE, continue levaquin to cover for pneumonia/bronchitis , continue inhalers as needed (3) COPD (chronic obstructive pulmonary disease) with acute bronchitis Assessment & Plan: will start antibiotics, continue inhales and oxygen as needed (4) Panic anxiety syndrome Assessment & Plan: continue anxiety meds with ativan Subjective Constitutional: Reports: fatigue HEENT: Reports: congestion Respiratory: Reports: productive cough Breasts: Reports: no symptoms Cardiovascular: Reports: no symptoms Gastrointestinal/Abdominal: Reports: no symptoms Genitourinary: Reports: no symptoms Neurologic: Reports: weakness Psychiatric: Reports: anxiety Skin: Reports: no symptoms Endocrine: Reports: no symptoms Hematologic: Reports: no symptoms Musculoskeletal: Reports: no symptoms Allergies: Coded Allergies: No Known Allergies (Unverified , 12/09/17) Objective Vital Signs Last 24 Hour Vital Signs Date Time Temp Pulse Resp B/P (MAP) Pulse Ox O2 Delivery O2 Flow Rate FiO2 12/11/17 12:00 97.7 65 20 93/52 (66) 97 12/11/17 11:04 83 20 100 Nasal Cannula 2.0 12/11/17 10:55 85 20 97 Nasal Cannula 2.0 12/11/17 09:00 Venturi Mask 5.0 12/11/17 08:11 74 95/54 12/11/17 08:00 97.0 74 20 95/54 (68) 97 12/11/17 08:00 67 12/11/17 07:22 70 20 100 Nasal Cannula 2.0 12/11/17 07:17 98 Nasal Cannula 2.0 12/11/17 07:17 Nasal Cannula 2.0 12/11/17 07:16 71 20 98 Nasal Cannula 2.0 12/11/17 04:00 58 12/11/17 04:00 97.5 61 20 107/62 (77) 99 12/11/17 03:32 65 22 98 Room Air 21 12/11/17 03:29 100 Simple Mask 7.0 12/11/17 03:29 Simple Mask 7.0 12/11/17 03:26 68 20 100 Simple Mask 10.0 12/11/17 00:00 60 12/11/17 00:00 98.4 64 21 101/59 (73) 100 12/10/17 21:00 Venturi Mask 5.0 12/10/17 20:00 99.1 69 20 111/56 (74) 99 12/10/17 20:00 67 12/10/17 17:17 71 117/73 12/10/17 16:00 73 12/10/17 16:00 98.0 71 20 117/73 (88) 99 Height (Feet): 5 Height (Inches): 6.00 Weight (Pounds): 170 General Appearance: WD/WN, no acute distress HEENT: normocephalic, atraumatic, anicteric, mucous membranes moist, PERRL Respiratory/Chest: chest wall non-tender, no respiratory distress, no accessory muscle use, decreased breath sounds, expiratory wheezing Cardiovascular: normal peripheral pulses, normal rate, regular rhythm, no gallop/murmur, no JVD Abdomen: normal bowel sounds, soft, non tender, no organomegaly, non distended , no mass, no scars Extremities: no cyanosis, no clubbing Skin: no rash, no lesions, no ulcers Neurologic/Psychiatric: alert, oriented x 3, responsive Lymphatic: no neck adenopathy, no groin adenopathy Musculoskeletal: normal muscle bulk, no effusion Microbiology Date/Time Source Procedure Growth Status 12/10/17 00:20 Blood Blood Culture - Preliminary NO GROWTH AFTER 24 HOURS Resulted 12/10/17 00:10 Blood Blood Culture - Preliminary NO GROWTH AFTER 24 HOURS Resulted 12/10/17 14:40 Sputum Expectorated Gram Stain - Final Resulted 12/10/17 14:40 Sputum Expectorated Sputum Culture Pending Resulted 12/10/17 00:12 Nasal Nares Influenza Types A,B Antigen (KEISHA) - Final Complete Laboratory Tests Test 12/10/17 14:40 12/11/17 05:55 Urine Opiates Screen Negative (NEGATIVE) Urine Barbiturates Screen Negative (NEGATIVE) Phencyclidine (PCP) Screen Negative (NEGATIVE) Urine Amphetamines Screen Negative (NEGATIVE) Urine Benzodiazepines Screen Negative (NEGATIVE) Urine Cocaine Screen Negative (NEGATIVE) Urine Marijuana (THC) Screen Negative (NEGATIVE) White Blood Count 7.0 K/UL (4.8-10.8) Red Blood Count 4.06 M/UL (4.20-5.40) L Hemoglobin 11.8 G/DL (12.0-16.0) L Hematocrit 35.7 % (37.0-47.0) L Mean Corpuscular Volume 88 FL (80-99) Mean Corpuscular Hemoglobin 29.1 PG (27.0-31.0) Mean Corpuscular Hemoglobin Concent 33.2 G/DL (32.0-36.0) Red Cell Distribution Width 12.4 % (11.6-14.8) Platelet Count 228 K/UL (150-450) Mean Platelet Volume 7.8 FL (6.5-10.1) Neutrophils (%) (Auto) 56.1 % (45.0-75.0) Lymphocytes (%) (Auto) 34.3 % (20.0-45.0) Monocytes (%) (Auto) 7.5 % (1.0-10.0) Eosinophils (%) (Auto) 1.2 % (0.0-3.0) Basophils (%) (Auto) 0.9 % (0.0-2.0) Sodium Level 138 MMOL/L (136-145) Potassium Level 4.5 MMOL/L (3.5-5.1) Chloride Level 105 MMOL/L (98-107) Carbon Dioxide Level 27 MMOL/L (21-32) Anion Gap 6 mmol/L (5-15) Blood Urea Nitrogen 12 mg/dL (7-18) Creatinine 0.8 MG/DL (0.55-1.30) Estimat Glomerular Filtration Rate > 60 mL/min (>60) Glucose Level 95 MG/DL (74-106) Calcium Level 8.8 MG/DL (8.5-10.1) Current Medications Medications (Trade) Dose Ordered Sig/Palomo Route PRN Reason Start Time Stop Time Status Last Admin Dose Admin Acetaminophen (Tylenol) 650 mg Q4H PRN ORAL Mild Pain (Pain Scale 1-3) 12/11/17 12:00 01/09/18 07:59 Acetaminophen/ Hydrocodone Bitart ([place] [address]) 1 tab Q4H PRN ORAL For Pain 7-11/2312/11/17 12:00 12/17/17 11:59 Albuterol/ Ipratropium (Albuterol/ Ipratropium) 3 ml Q4HRT HHN 12/11/17 15:00 12/16/17 02:59 Aspirin (ASA) 81 mg DAILY ORAL 12/12/17 09:00 01/09/18 08:59 Atenolol (Tenormin) 25 mg DAILY ORAL 12/12/17 09:00 01/10/18 08:59 Dextrose (Dextrose 50%) 25 ml Q30M PRN IV Hypoglycemia 12/11/17 12:00 01/09/18 07:59 Dextrose (Dextrose 50%) 50 ml Q30M PRN IV Hypoglycemia 12/11/17 12:00 01/09/18 07:59 Enoxaparin Sodium (Lovenox) 40 mg Q24H SUBQ 12/12/17 09:00 01/09/18 08:59 Famotidine (Pepcid) 40 mg DAILY ORAL 12/12/17 09:00 01/09/18 08:59 Levofloxacin 150 ml @ 100 mls/hr Q24H IVPB 12/12/17 00:00 12/18/17 00:00 Ondansetron HCl (Zofran) 4 mg Q6H PRN IVP Nausea & Vomiting 12/11/17 12:00 01/09/18 11:59 Sodium Chloride 1,000 ml @ 50 mls/hr Q20H IVLG 12/11/17 11:45 01/09/18 08:53 12/11/17 11:45 Deonna Barkley M.D. Dec 11, 2017 13:49
[2017-12-11] MEDS ORDERED: PROTONIX40 MG ORAL (15:56)
[2017-12-11] MEDS ORDERED: ATENOLOL50 MG ORAL (15:56)
[2017-12-11 16:00] VITALS: BP 93/62
[2017-12-11 20:00] VITALS: BP 113/54
[2017-12-11] MEDS ORDERED: Albuterol/Ipratropium 3ml neb ONE (20:36)
[2017-12-11] MEDS: LORazepam 1mg tab ORAL PRN (22:17)
--- NOTE | 2017-12-11 22:33 | Cardiology Progress Note ---
Assessment/Plan Status: stable Assessment/Plan Assessment (1) Pneumonia (2) Dyspnea (3) COPD (chronic obstructive pulmonary disease) with acute bronchitis (4) Chest pain Plan Serial Troponin/EKG -: negative Aspirin Statin nitro prn chest pain Outpatient stress test Abx per ID for PNA IV fluids Continue atenolol Echocardiogram -> LVEF 60-65% DVT/GI ppx Subjective Cardiovascular: Reports: no symptoms Respiratory: Reports: no symptoms Gastrointestinal/Abdominal: Reports: no symptoms Genitourinary: Reports: no symptoms Subjective No acute events, Chest pain and shortness of breath improved, vitals stable, no complaints Objective Last 24 Hour Vital Signs Date Time Temp Pulse Resp B/P (MAP) Pulse Ox O2 Delivery O2 Flow Rate FiO2 12/11/17 20:53 77 16 98 Room Air 21 12/11/17 20:41 Room Air 12/11/17 20:41 70 16 95 Room Air 21 12/11/17 20:41 95 Room Air 21 12/11/17 16:00 98.6 64 20 93/62 (72) 98 12/11/17 14:29 80 18 96 Room Air 21 12/11/17 14:21 80 20 94 Room Air 21 12/11/17 12:00 97.7 65 20 93/52 (66) 97 12/11/17 11:04 83 20 100 Nasal Cannula 2.0 12/11/17 10:55 85 20 97 Nasal Cannula 2.0 12/11/17 09:00 Venturi Mask 5.0 12/11/17 08:11 74 95/54 12/11/17 08:00 97.0 74 20 95/54 (68) 97 12/11/17 08:00 67 12/11/17 07:22 70 20 100 Nasal Cannula 2.0 12/11/17 07:17 98 Nasal Cannula 2.0 12/11/17 07:17 Nasal Cannula 2.0 12/11/17 07:16 71 20 98 Nasal Cannula 2.0 12/11/17 04:00 58 12/11/17 04:00 97.5 61 20 107/62 (77) 99 12/11/17 03:32 65 22 98 Room Air 21 12/11/17 03:29 100 Simple Mask 7.0 12/11/17 03:29 Simple Mask 7.0 12/11/17 03:26 68 20 100 Simple Mask 10.0 12/11/17 00:00 60 12/11/17 00:00 98.4 64 21 101/59 (73) 100 General Appearance: no apparent distress, alert EENT: PERRL/EOMI, normal ENT inspection Neck: non-tender, normal alignment, supple, normal inspection, no JVD Rhythm: NSR Cardiovascular: normal peripheral pulses, normal rate, regular rhythm Respiratory/Chest: lungs clear, normal breath sounds, no respiratory distress, no accessory muscle use Abdomen: normal bowel sounds, no organomegaly, no mass Neurologic: camera engineer II-XII grossly normal, no motor/sensory deficits Intake and Output 12/10/17 12/11/17 19:00 07:00 Intake Total 400 ml Balance 400 ml Intake Oral 400 ml # Voids 2 5 Laboratory Tests Test 12/11/17 05:55 White Blood Count 7.0 K/UL (4.8-10.8) Red Blood Count 4.06 M/UL (4.20-5.40) L Hemoglobin 11.8 G/DL (12.0-16.0) L Hematocrit 35.7 % (37.0-47.0) L Mean Corpuscular Volume 88 FL (80-99) Mean Corpuscular Hemoglobin 29.1 PG (27.0-31.0) Mean Corpuscular Hemoglobin Concent 33.2 G/DL (32.0-36.0) Red Cell Distribution Width 12.4 % (11.6-14.8) Platelet Count 228 K/UL (150-450) Mean Platelet Volume 7.8 FL (6.5-10.1) Neutrophils (%) (Auto) 56.1 % (45.0-75.0) Lymphocytes (%) (Auto) 34.3 % (20.0-45.0) Monocytes (%) (Auto) 7.5 % (1.0-10.0) Eosinophils (%) (Auto) 1.2 % (0.0-3.0) Basophils (%) (Auto) 0.9 % (0.0-2.0) Sodium Level 138 MMOL/L (136-145) Potassium Level 4.5 MMOL/L (3.5-5.1) Chloride Level 105 MMOL/L (98-107) Carbon Dioxide Level 27 MMOL/L (21-32) Anion Gap 6 mmol/L (5-15) Blood Urea Nitrogen 12 mg/dL (7-18) Creatinine 0.8 MG/DL (0.55-1.30) Estimat Glomerular Filtration Rate > 60 mL/min (>60) Glucose Level 95 MG/DL (74-106) Calcium Level 8.8 MG/DL (8.5-10.1) Microbiology Date/Time Source Procedure Growth Status 12/10/17 00:20 Blood Blood Culture - Preliminary NO GROWTH AFTER 24 HOURS Resulted 12/10/17 00:10 Blood Blood Culture - Preliminary NO GROWTH AFTER 24 HOURS Resulted 12/10/17 14:40 Sputum Expectorated Gram Stain - Final Resulted 12/10/17 14:40 Sputum Expectorated Sputum Culture Pending Resulted 12/10/17 00:12 Nasal Nares Influenza Types A,B Antigen (KEISHA) - Final Complete FilsoofMigel MD Dec 11, 2017 22:33
[2017-12-12] VITALS: BP 104/63
[2017-12-12] MEDS: Albuterol/Ipratropium 3ml neb HHN SCH ×6 (02:59→22:42)
[2017-12-12 04:00] VITALS: BP 104/68
[2017-12-12 06:44] LABS: BASOPHILS % (AUTO) 0.7 % (0.0-2.0); EOSINOPHILS % (AUTO) 0.3 % (0.0-3.0); HEMATOCRIT 33.6 % (37.0-47.0); HEMOGLOBIN 10.8 G/DL (12.0-16.0); LYMPHOCYTES % (AUTO) 39.8 % (20.0-45.0); MEAN CORPUSCULAR VOLUME 88 FL (80-99); MONOCYTES % (AUTO) 7.3 % (1.0-10.0); PLATELET COUNT 199 K/UL (150-450); RED BLOOD COUNT 3.82 M/UL (4.20-5.40); RED CELL DISTRIBUTION WIDTH 12.3 % (11.6-14.8); WHITE BLOOD COUNT 5.5 K/UL (4.8-10.8)
[2017-12-12 07:12] LABS: ANION GAP 8 mmol/L (5-15); BLOOD UREA NITROGEN 19 mg/dL (7-18); CALCIUM 8.8 MG/DL (8.5-10.1); CARBON DIOXIDE 27 MMOL/L (21-32); CHLORIDE 107 MMOL/L (98-107); CREATININE 0.9 MG/DL (0.55-1.30); POTASSIUM 4.2 MMOL/L (3.5-5.1); SODIUM 142 MMOL/L (136-145)
[2017-12-12 08:00] VITALS: BP 112/72
--- NOTE | 2017-12-12 08:29 | Pulmonology Progress Note ---
Assessment/Plan Assessment/Plan COPD exacerbation probable acute bronchitis cxr negative VQ mismatching PLAN respiratory care as is consider Anoro 1 puff daily on dc with albuterol complete 5 days of levaquin cards clearance otherwise appears stable impression, plan, and exam edited and reviewed in detail care discussed with RN Subjective Allergies: Coded Allergies: No Known Allergies (Unverified , 12/09/17) Subjective care noted not congested currently off oxygen Objective Last 24 Hour Vital Signs Date Time Temp Pulse Resp B/P (MAP) Pulse Ox O2 Delivery O2 Flow Rate FiO2 12/12/17 08:04 Room Air 12/12/17 08:04 74 16 95 Room Air 21 12/12/17 08:04 95 Room Air 21 12/12/17 08:04 74 16 95 Room Air 21 12/12/17 04:00 97.9 79 18 104/68 (80) 95 12/12/17 02:59 Room Air 21 12/12/17 02:59 Room Air 21 12/12/17 00:00 97.8 77 18 104/63 (77) 98 12/11/17 23:30 Room Air 21 12/11/17 23:30 Room Air 21 12/11/17 21:00 Venturi Mask 12/11/17 20:53 77 16 98 Room Air 21 12/11/17 20:41 Room Air 12/11/17 20:41 70 16 95 Room Air 21 12/11/17 20:41 95 Room Air 21 12/11/17 20:00 98.2 69 18 113/54 (73) 98 12/11/17 16:00 98.6 64 20 93/62 (72) 98 12/11/17 14:29 80 18 96 Room Air 21 12/11/17 14:21 80 20 94 Room Air 21 12/11/17 12:00 97.7 65 20 93/52 (66) 97 12/11/17 11:04 83 20 100 Nasal Cannula 2.0 12/11/17 10:55 85 20 97 Nasal Cannula 2.0 12/11/17 09:00 Venturi Mask 5.0 Intake and Output 12/11/17 12/12/17 19:00 07:00 Intake Total 300 ml 790 ml Balance 300 ml 790 ml Intake Oral 250 ml 240 ml IV Total 50 ml 550 ml # Voids 2 Objective WDWN NAD clear breath sounds bilaterally without rhonchi or wheeze [id number] without MRG NABS nontender no HSM no CCE nonfocal Microbiology Date/Time Source Procedure Growth Status 12/10/17 00:20 Blood Blood Culture - Preliminary NO GROWTH AFTER 48 HOURS Resulted 12/10/17 00:10 Blood Blood Culture - Preliminary NO GROWTH AFTER 48 HOURS Resulted 12/10/17 14:40 Sputum Expectorated Gram Stain - Final Resulted 12/10/17 14:40 Sputum Expectorated Sputum Culture - Preliminary Resulted 12/10/17 00:12 Nasal Nares Influenza Types A,B Antigen (KEISHA) - Final Complete Laboratory Tests 12/12/17 05:15: White Blood Count 5.5, Red Blood Count 3.82L, Hemoglobin 10.8L, Hematocrit 33.6L , Mean Corpuscular Volume 88, Mean Corpuscular Hemoglobin 28.3, Mean Corpuscular Hemoglobin Concent 32.2, Red Cell Distribution Width 12.3, Platelet Count 199, Mean Platelet Volume 7.7, Neutrophils (%) (Auto) 52.0, Lymphocytes (% ) (Auto) 39.8, Monocytes (%) (Auto) 7.3, Eosinophils (%) (Auto) 0.3, Basophils ( %) (Auto) 0.7, Sodium Level 142, Potassium Level 4.2, Chloride Level 107, Carbon Dioxide Level 27, Anion Gap 8, Blood Urea Nitrogen 19H, Creatinine 0.9, Estimat Glomerular Filtration Rate > 60, Glucose Level 101, Calcium Level 8.8 Current Medications Medications (Trade) Dose Ordered Sig/Palomo Route PRN Reason Start Time Stop Time Status Last Admin Dose Admin Acetaminophen (Tylenol) 650 mg Q4H PRN ORAL Mild Pain (Pain Scale 1-3) 12/11/17 12:00 01/09/18 07:59 Acetaminophen/ Hydrocodone Bitart ([place] 10/325) 1 tab Q4H PRN ORAL For Pain 7-11/2312/11/17 12:00 12/17/17 11:59 12/11/17 20:21 Albuterol/ Ipratropium (Albuterol/ Ipratropium) 3 ml Q4HRT HHN 12/11/17 15:00 12/16/17 02:59 12/12/17 08:03 Aspirin (ASA) 81 mg DAILY ORAL 12/12/17 09:00 01/09/18 08:59 Atenolol (Tenormin) 25 mg DAILY ORAL 12/12/17 09:00 01/10/18 08:59 Clotrimazole (Lotrimin) 1 applic THREE TIMES A DAY TOPIC 12/11/17 23:00 01/10/18 22:59 12/11/17 22:29 Dextrose (Dextrose 50%) 25 ml Q30M PRN IV Hypoglycemia 12/11/17 12:00 01/09/18 07:59 Dextrose (Dextrose 50%) 50 ml Q30M PRN IV Hypoglycemia 12/11/17 12:00 01/09/18 07:59 Enoxaparin Sodium (Lovenox) 40 mg Q24H SUBQ 12/12/17 09:00 01/09/18 08:59 Famotidine (Pepcid) 40 mg DAILY ORAL 12/12/17 09:00 01/09/18 08:59 Levofloxacin 150 ml @ 100 mls/hr Q24H IVPB 12/12/17 00:00 12/18/17 00:00 12/12/17 02:00 Lorazepam (Ativan) 1 mg BEDTIME PRN ORAL INSOMNIA 12/11/17 21:55 12/18/17 21:54 12/11/17 22:17 Ondansetron HCl (Zofran) 4 mg Q6H PRN IVP Nausea & Vomiting 12/11/17 12:00 01/09/18 11:59 Sodium Chloride 1,000 ml @ 50 mls/hr Q20H IVLG 12/11/17 11:45 01/09/18 08:53 12/11/17 11:45 Duc Keene MD Dec 12, 2017 08:29
[2017-12-12] MEDS: Atenolol 25mg tab ORAL SCH (08:31)
[2017-12-12] MEDS: HYDROcodone/Acetamin 10/325 tab ORAL PRN (08:31)
[2017-12-12] MEDS: Aspirin Baby 81mg ORAL SCH (08:31)
[2017-12-12] MEDS: Enoxaparin 40mg Inj SUBQ SCH (08:33)
--- NOTE | 2017-12-12 11:15 | Nephrology Progress Note ---
Assessment/Plan Assessment/Plan A/P 1) SOB/PNA- Abx and inhalers - much improved - cleared for DC from ID and Pulm 2) Chest Pain- AK ruled out - appreciate cardiology assistance - cleared from cardiology 3) Psy history- defer to psychiatry 4) DVT prophylaxis with lovenox 5) HTN stable Patient cleared for DC once placement set Subjective Date patient seen: Dec 12, 2017 Time patient seen: 11:12 ROS Limited/Unobtainable: No Allergies: Coded Allergies: No Known Allergies (Unverified , 12/09/17) All Systems: reviewed and negative except above Subjective Patient much improved and breathing well Objective Last 24 Hour Vital Signs Date Time Temp Pulse Resp B/P (MAP) Pulse Ox O2 Delivery O2 Flow Rate FiO2 12/12/17 09:00 Room Air 12/12/17 08:31 111 112/72 12/12/17 08:04 Room Air 12/12/17 08:04 74 16 95 Room Air 21 12/12/17 08:04 95 Room Air 21 12/12/17 08:04 74 16 95 Room Air 21 12/12/17 08:00 97.7 111 20 112/72 (85) 96 12/12/17 04:00 97.9 79 18 104/68 (80) 95 12/12/17 02:59 Room Air 21 12/12/17 02:59 Room Air 21 12/12/17 00:00 97.8 77 18 104/63 (77) 98 12/11/17 23:30 Room Air 21 12/11/17 23:30 Room Air 21 12/11/17 21:00 Venturi Mask 12/11/17 20:53 77 16 98 Room Air 21 12/11/17 20:41 Room Air 12/11/17 20:41 70 16 95 Room Air 21 12/11/17 20:41 95 Room Air 21 12/11/17 20:00 98.2 69 18 113/54 (73) 98 12/11/17 16:00 98.6 64 20 93/62 (72) 98 12/11/17 14:29 80 18 96 Room Air 21 12/11/17 14:21 80 20 94 Room Air 21 12/11/17 12:00 97.7 65 20 93/52 (66) 97 Intake and Output 12/11/17 12/12/17 19:00 07:00 Intake Total 300 ml 790 ml Balance 300 ml 790 ml Intake Oral 250 ml 240 ml IV Total 50 ml 550 ml # Voids 2 Laboratory Tests 12/12/17 05:15: White Blood Count 5.5, Red Blood Count 3.82L, Hemoglobin 10.8L, Hematocrit 33.6L , Mean Corpuscular Volume 88, Mean Corpuscular Hemoglobin 28.3, Mean Corpuscular Hemoglobin Concent 32.2, Red Cell Distribution Width 12.3, Platelet Count 199, Mean Platelet Volume 7.7, Neutrophils (%) (Auto) 52.0, Lymphocytes (% ) (Auto) 39.8, Monocytes (%) (Auto) 7.3, Eosinophils (%) (Auto) 0.3, Basophils ( %) (Auto) 0.7, Sodium Level 142, Potassium Level 4.2, Chloride Level 107, Carbon Dioxide Level 27, Anion Gap 8, Blood Urea Nitrogen 19H, Creatinine 0.9, Estimat Glomerular Filtration Rate > 60, Glucose Level 101, Calcium Level 8.8 Height (Feet): 5 Height (Inches): 6.00 Weight (Pounds): 170 General Appearance: no apparent distress, alert EENT: normal ENT inspection Neck: normal alignment, supple Cardiovascular: normal rate, regular rhythm Respiratory/Chest: lungs clear, normal breath sounds Abdomen: non tender, soft Edema: no edema noted Arm (L), no edema noted Arm (R), no edema noted Leg (L), no edema noted Leg (R), no edema noted Pedal (L), no edema noted Pedal (R), no edema noted Generalized Catalino Tinsley MD Dec 12, 2017 11:15
[2017-12-12 12:00] VITALS: BP 111/60
[2017-12-12] MEDS ORDERED: Solu-MEDROL 40mg Inj IVP SCH (14:00)
--- NOTE | 2017-12-12 14:11 | Cardiology Progress Note ---
Assessment/Plan Status: stable Assessment/Plan Assessment (1) Pneumonia (2) Dyspnea (3) COPD (chronic obstructive pulmonary disease) with acute bronchitis (4) Chest pain Plan Serial Troponin/EKG -: negative Aspirin Statin nitro prn chest pain Outpatient stress test Abx per ID for PNA IV fluids Continue atenolol Echocardiogram -> LVEF 60-65% DVT/GI ppx Dispo planning Subjective Respiratory: Reports: no symptoms Gastrointestinal/Abdominal: Reports: no symptoms Genitourinary: Reports: no symptoms Subjective No acute events, Chest pain and shortness of breath improved, vitals stable, no complaints Objective Last 24 Hour Vital Signs Date Time Temp Pulse Resp B/P (MAP) Pulse Ox O2 Delivery O2 Flow Rate FiO2 12/12/17 12:00 98.7 63 18 111/60 (77) 95 12/12/17 11:34 77 16 95 Room Air 21 12/12/17 11:34 77 16 95 Room Air 21 12/12/17 09:00 Room Air 12/12/17 08:31 111 112/72 12/12/17 08:04 Room Air 12/12/17 08:04 74 16 95 Room Air 21 12/12/17 08:04 95 Room Air 21 12/12/17 08:04 74 16 95 Room Air 21 12/12/17 08:00 97.7 111 20 112/72 (85) 96 12/12/17 04:00 97.9 79 18 104/68 (80) 95 12/12/17 02:59 Room Air 21 12/12/17 02:59 Room Air 21 12/12/17 00:00 97.8 77 18 104/63 (77) 98 12/11/17 23:30 Room Air 21 12/11/17 23:30 Room Air 21 12/11/17 21:00 Venturi Mask 12/11/17 20:53 77 16 98 Room Air 21 12/11/17 20:41 Room Air 12/11/17 20:41 70 16 95 Room Air 21 12/11/17 20:41 95 Room Air 21 12/11/17 20:00 98.2 69 18 113/54 (73) 98 12/11/17 16:00 98.6 64 20 93/62 (72) 98 12/11/17 14:29 80 18 96 Room Air 21 12/11/17 14:21 80 20 94 Room Air 21 General Appearance: no apparent distress, alert, severe distress EENT: normal ENT inspection Neck: non-tender, normal alignment Rhythm: NSR Cardiovascular: normal peripheral pulses, normal rate, regular rhythm Respiratory/Chest: chest wall non-tender, lungs clear Abdomen: normal bowel sounds, non tender Extremities: normal range of motion, non-tender Neurologic: mobile engineer II-XII grossly normal, no motor/sensory deficits, alert, oriented x 3 Intake and Output 12/11/17 12/12/17 19:00 07:00 Intake Total 300 ml 790 ml Balance 300 ml 790 ml Intake Oral 250 ml 240 ml IV Total 50 ml 550 ml # Voids 2 Laboratory Tests Test 12/12/17 05:15 White Blood Count 5.5 K/UL (4.8-10.8) Red Blood Count 3.82 M/UL (4.20-5.40) L Hemoglobin 10.8 G/DL (12.0-16.0) L Hematocrit 33.6 % (37.0-47.0) L Mean Corpuscular Volume 88 FL (80-99) Mean Corpuscular Hemoglobin 28.3 PG (27.0-31.0) Mean Corpuscular Hemoglobin Concent 32.2 G/DL (32.0-36.0) Red Cell Distribution Width 12.3 % (11.6-14.8) Platelet Count 199 K/UL (150-450) Mean Platelet Volume 7.7 FL (6.5-10.1) Neutrophils (%) (Auto) 52.0 % (45.0-75.0) Lymphocytes (%) (Auto) 39.8 % (20.0-45.0) Monocytes (%) (Auto) 7.3 % (1.0-10.0) Eosinophils (%) (Auto) 0.3 % (0.0-3.0) Basophils (%) (Auto) 0.7 % (0.0-2.0) Sodium Level 142 MMOL/L (136-145) Potassium Level 4.2 MMOL/L (3.5-5.1) Chloride Level 107 MMOL/L (98-107) Carbon Dioxide Level 27 MMOL/L (21-32) Anion Gap 8 mmol/L (5-15) Blood Urea Nitrogen 19 mg/dL (7-18) H Creatinine 0.9 MG/DL (0.55-1.30) Estimat Glomerular Filtration Rate > 60 mL/min (>60) Glucose Level 101 MG/DL (74-106) Calcium Level 8.8 MG/DL (8.5-10.1) Microbiology Date/Time Source Procedure Growth Status 12/10/17 00:20 Blood Blood Culture - Preliminary NO GROWTH AFTER 48 HOURS Resulted 12/10/17 00:10 Blood Blood Culture - Preliminary NO GROWTH AFTER 48 HOURS Resulted 12/10/17 14:40 Sputum Expectorated Gram Stain - Final Resulted 12/10/17 14:40 Sputum Expectorated Sputum Culture - Preliminary Resulted 12/10/17 00:12 Nasal Nares Influenza Types A,B Antigen (KEISHA) - Final Complete FilsoMigel jacobs MD Dec 12, 2017 14:11
--- NOTE | 2017-12-12 15:26 | General Progress Note ---
Assessment/Plan Problem List: (1) Panic anxiety syndrome ICD Codes: F41.0 - Panic disorder [episodic paroxysmal anxiety] SNOMED: 368308880 Assessment/Plan lexapro 10mg q daily klonopin 1mg qhs provided ro/st Subjective Date patient seen: Dec 12, 2017 Neurologic/Psychiatric: Reports: anxiety, depressed, emotional problems Allergies: Coded Allergies: No Known Allergies (Unverified , 12/09/17) Objective Last 24 Hour Vital Signs Date Time Temp Pulse Resp B/P (MAP) Pulse Ox O2 Delivery O2 Flow Rate FiO2 12/12/17 15:06 78 16 97 Room Air 21 12/12/17 14:56 75 16 95 Room Air 21 12/12/17 12:00 98.7 63 18 111/60 (77) 95 12/12/17 11:34 77 16 95 Room Air 21 12/12/17 11:34 77 16 95 Room Air 21 12/12/17 09:00 Room Air 12/12/17 08:31 111 112/72 12/12/17 08:04 Room Air 12/12/17 08:04 74 16 95 Room Air 21 12/12/17 08:04 95 Room Air 21 12/12/17 08:04 74 16 95 Room Air 21 12/12/17 08:00 97.7 111 20 112/72 (85) 96 12/12/17 04:00 97.9 79 18 104/68 (80) 95 12/12/17 02:59 Room Air 21 12/12/17 02:59 Room Air 21 12/12/17 00:00 97.8 77 18 104/63 (77) 98 12/11/17 23:30 Room Air 21 12/11/17 23:30 Room Air 21 12/11/17 21:00 Venturi Mask 12/11/17 20:53 77 16 98 Room Air 21 12/11/17 20:41 Room Air 12/11/17 20:41 70 16 95 Room Air 21 12/11/17 20:41 95 Room Air 21 12/11/17 20:00 98.2 69 18 113/54 (73) 98 12/11/17 16:00 98.6 64 20 93/62 (72) 98 Intake and Output 12/11/17 12/12/17 19:00 07:00 Intake Total 300 ml 790 ml Balance 300 ml 790 ml Intake Oral 250 ml 240 ml IV Total 50 ml 550 ml # Voids 2 Laboratory Tests 12/12/17 05:15: White Blood Count 5.5, Red Blood Count 3.82L, Hemoglobin 10.8L, Hematocrit 33.6L , Mean Corpuscular Volume 88, Mean Corpuscular Hemoglobin 28.3, Mean Corpuscular Hemoglobin Concent 32.2, Red Cell Distribution Width 12.3, Platelet Count 199, Mean Platelet Volume 7.7, Neutrophils (%) (Auto) 52.0, Lymphocytes (% ) (Auto) 39.8, Monocytes (%) (Auto) 7.3, Eosinophils (%) (Auto) 0.3, Basophils ( %) (Auto) 0.7, Sodium Level 142, Potassium Level 4.2, Chloride Level 107, Carbon Dioxide Level 27, Anion Gap 8, Blood Urea Nitrogen 19H, Creatinine 0.9, Estimat Glomerular Filtration Rate > 60, Glucose Level 101, Calcium Level 8.8 Height (Feet): 5 Height (Inches): 6.00 Weight (Pounds): 170 General Appearance: no apparent distress, alert Neurologic: oriented x 3, depressed affect Mick Trujillo MD Dec 12, 2017 15:26
[2017-12-12 16:00] VITALS: BP 112/66
--- NOTE | 2017-12-12 16:47 | Infectious Diseases Prog Note ---
Assessment/Plan Problems: (1) Pneumonia Assessment & Plan: with cough productive and wheezing, continue levaquin empirically pending sputum culture . (2) Dyspnea Assessment & Plan: suspect due to the above, and due to anxiety , V/Q scan is negative for PE, continue levaquin to cover for pneumonia/bronchitis , continue inhalers as needed (3) COPD (chronic obstructive pulmonary disease) with acute bronchitis Assessment & Plan: will start antibiotics, continue inhales and oxygen as needed (4) Panic anxiety syndrome Assessment & Plan: continue anxiety meds with ativan Subjective Constitutional: Reports: no symptoms HEENT: Reports: no symptoms Respiratory: Reports: productive cough Breasts: Reports: no symptoms Cardiovascular: Reports: no symptoms Gastrointestinal/Abdominal: Reports: no symptoms Genitourinary: Reports: no symptoms Neurologic: Reports: no symptoms Psychiatric: Reports: no symptoms Skin: Reports: no symptoms Endocrine: Reports: no symptoms Hematologic: Reports: no symptoms Musculoskeletal: Reports: no symptoms Allergies: Coded Allergies: No Known Allergies (Unverified , 12/09/17) Objective Vital Signs Last 24 Hour Vital Signs Date Time Temp Pulse Resp B/P (MAP) Pulse Ox O2 Delivery O2 Flow Rate FiO2 12/12/17 16:00 98.3 86 18 112/66 (81) 97 12/12/17 15:06 78 16 97 Room Air 21 12/12/17 14:56 75 16 95 Room Air 21 12/12/17 12:00 98.7 63 18 111/60 (77) 95 12/12/17 11:34 77 16 95 Room Air 21 12/12/17 11:34 77 16 95 Room Air 21 12/12/17 09:00 Room Air 12/12/17 08:31 111 112/72 12/12/17 08:04 Room Air 12/12/17 08:04 74 16 95 Room Air 21 12/12/17 08:04 95 Room Air 21 12/12/17 08:04 74 16 95 Room Air 21 12/12/17 08:00 97.7 111 20 112/72 (85) 96 12/12/17 04:00 97.9 79 18 104/68 (80) 95 12/12/17 02:59 Room Air 21 12/12/17 02:59 Room Air 21 12/12/17 00:00 97.8 77 18 104/63 (77) 98 12/11/17 23:30 Room Air 21 12/11/17 23:30 Room Air 21 12/11/17 21:00 Venturi Mask 12/11/17 20:53 77 16 98 Room Air 21 12/11/17 20:41 Room Air 12/11/17 20:41 70 16 95 Room Air 21 12/11/17 20:41 95 Room Air 21 12/11/17 20:00 98.2 69 18 113/54 (73) 98 Height (Feet): 5 Height (Inches): 6.00 Weight (Pounds): 170 General Appearance: WD/WN, no acute distress HEENT: normocephalic, atraumatic, anicteric, mucous membranes moist, PERRL Respiratory/Chest: chest wall non-tender, no respiratory distress, no accessory muscle use, decreased breath sounds, expiratory wheezing Cardiovascular: normal peripheral pulses, normal rate, regular rhythm, no gallop/murmur, no JVD Abdomen: normal bowel sounds, soft, non tender, no organomegaly, non distended , no mass, no scars Genitourinary: normal external genitalia Extremities: no cyanosis, no clubbing Skin: no rash, no lesions, no ulcers Neurologic/Psychiatric: alert, oriented x 3, responsive Lymphatic: no neck adenopathy, no groin adenopathy Musculoskeletal: normal muscle bulk, no effusion Microbiology Date/Time Source Procedure Growth Status 12/10/17 00:20 Blood Blood Culture - Preliminary NO GROWTH AFTER 48 HOURS Resulted 12/10/17 00:10 Blood Blood Culture - Preliminary NO GROWTH AFTER 48 HOURS Resulted 12/10/17 14:40 Sputum Expectorated Gram Stain - Final Resulted 12/10/17 14:40 Sputum Expectorated Sputum Culture - Preliminary Resulted 12/10/17 00:12 Nasal Nares Influenza Types A,B Antigen (KEISHA) - Final Complete Laboratory Tests Test 12/12/17 05:15 White Blood Count 5.5 K/UL (4.8-10.8) Red Blood Count 3.82 M/UL (4.20-5.40) L Hemoglobin 10.8 G/DL (12.0-16.0) L Hematocrit 33.6 % (37.0-47.0) L Mean Corpuscular Volume 88 FL (80-99) Mean Corpuscular Hemoglobin 28.3 PG (27.0-31.0) Mean Corpuscular Hemoglobin Concent 32.2 G/DL (32.0-36.0) Red Cell Distribution Width 12.3 % (11.6-14.8) Platelet Count 199 K/UL (150-450) Mean Platelet Volume 7.7 FL (6.5-10.1) Neutrophils (%) (Auto) 52.0 % (45.0-75.0) Lymphocytes (%) (Auto) 39.8 % (20.0-45.0) Monocytes (%) (Auto) 7.3 % (1.0-10.0) Eosinophils (%) (Auto) 0.3 % (0.0-3.0) Basophils (%) (Auto) 0.7 % (0.0-2.0) Sodium Level 142 MMOL/L (136-145) Potassium Level 4.2 MMOL/L (3.5-5.1) Chloride Level 107 MMOL/L (98-107) Carbon Dioxide Level 27 MMOL/L (21-32) Anion Gap 8 mmol/L (5-15) Blood Urea Nitrogen 19 mg/dL (7-18) H Creatinine 0.9 MG/DL (0.55-1.30) Estimat Glomerular Filtration Rate > 60 mL/min (>60) Glucose Level 101 MG/DL (74-106) Calcium Level 8.8 MG/DL (8.5-10.1) Current Medications Medications (Trade) Dose Ordered Sig/Palomo Route PRN Reason Start Time Stop Time Status Last Admin Dose Admin Acetaminophen (Tylenol) 650 mg Q4H PRN ORAL Mild Pain (Pain Scale 1-3) 12/11/17 12:00 01/09/18 07:59 Albuterol/ Ipratropium (Albuterol/ Ipratropium) 3 ml Q4HRT HHN 12/11/17 15:00 12/16/17 02:59 12/12/17 14:56 Aspirin (ASA) 81 mg DAILY ORAL 12/12/17 09:00 01/09/18 08:59 12/12/17 08:31 Atenolol (Tenormin) 25 mg DAILY ORAL 12/12/17 09:00 01/10/18 08:59 12/12/17 08:31 Clonazepam (KlonoPIN) 1 mg BEDTIME ORAL 12/12/17 21:00 12/19/17 20:59 Clotrimazole (Lotrimin) 1 applic THREE TIMES A DAY TOPIC 12/11/17 23:00 01/10/18 22:59 12/12/17 12:50 Dextrose (Dextrose 50%) 25 ml Q30M PRN IV Hypoglycemia 12/11/17 12:00 01/09/18 07:59 Dextrose (Dextrose 50%) 50 ml Q30M PRN IV Hypoglycemia 12/11/17 12:00 01/09/18 07:59 Enoxaparin Sodium (Lovenox) 40 mg Q24H SUBQ 12/12/17 09:00 01/09/18 08:59 12/12/17 08:33 Escitalopram Oxalate (Lexapro) 10 mg DAILY ORAL 12/12/17 13:15 01/11/18 13:14 12/12/17 14:01 Famotidine (Pepcid) 40 mg DAILY ORAL 12/12/17 09:00 01/09/18 08:59 12/12/17 08:32 Levofloxacin 150 ml @ 100 mls/hr Q24H IVPB 12/12/17 00:00 12/18/17 00:00 12/12/17 02:00 Lorazepam (Ativan) 1 mg BEDTIME PRN ORAL INSOMNIA 12/11/17 21:55 12/18/17 21:54 12/11/17 22:17 Ondansetron HCl (Zofran) 4 mg Q6H PRN IVP Nausea & Vomiting 12/11/17 12:00 01/09/18 11:59 Prednisone (predniSONE) 20 mg DAILY ORAL 12/13/17 09:00 01/12/18 08:59 Deonna Barkley M.D. Dec 12, 2017 16:47
[2017-12-12] MEDS: traMADol 50mg tab ORAL PRN (20:07)
[2017-12-12 20:27] VITALS: BP 121/71
[2017-12-13] VITALS: BP 124/75
[2017-12-13] MEDS: LORazepam 1mg tab ORAL PRN (00:06)
[2017-12-13] MEDS: Albuterol/Ipratropium 3ml neb HHN SCH ×6 (03:00→14:48)
[2017-12-13 04:00] VITALS: BP 100/63
[2017-12-13 04:27] VITALS: BP 100/63
[2017-12-13 08:00] VITALS: BP 118/67
--- NOTE | 2017-12-13 08:45 | Nephrology Progress Note ---
Assessment/Plan Assessment/Plan A/P 1) SOB/PNA- Abx and inhalers - resolved. Awaiting DC 2) Chest Pain- PA ruled out - appreciate cardiology assistance 3) Psy history- psychiatry to manage 4) DVT prophylaxis with lovenox 5) HTN stable Patient awaiting placement Subjective Date patient seen: Dec 13, 2017 Time patient seen: 08:41 ROS Limited/Unobtainable: No Allergies: Coded Allergies: No Known Allergies (Unverified , 12/09/17) Subjective Patient in no distress and resting well. Awaiting DC Objective Last 24 Hour Vital Signs Date Time Temp Pulse Resp B/P (MAP) Pulse Ox O2 Delivery O2 Flow Rate FiO2 12/13/17 08:00 97.8 79 20 118/67 (84) 94 12/13/17 04:27 98.0 86 17 100/63 (75) 92 12/13/17 04:00 Room Air 21 12/13/17 04:00 Room Air 21 12/13/17 04:00 98.0 86 17 100/63 (75) 92 12/13/17 00:00 97.9 71 18 124/75 (91) 92 12/12/17 22:42 Room Air 21 12/12/17 22:42 Room Air 21 12/12/17 21:00 Room Air 12/12/17 20:27 97.6 78 16 121/71 (88) 92 12/12/17 19:36 73 16 95 Room Air 21 12/12/17 19:23 73 18 93 Room Air 21 12/12/17 19:22 93 Room Air 21 12/12/17 19:22 Room Air 12/12/17 16:00 98.3 86 18 112/66 (81) 97 12/12/17 15:06 78 16 97 Room Air 21 12/12/17 14:56 75 16 95 Room Air 21 12/12/17 12:00 98.7 63 18 111/60 (77) 95 12/12/17 11:34 77 16 95 Room Air 21 12/12/17 11:34 77 16 95 Room Air 21 12/12/17 09:00 Room Air Intake and Output 12/12/17 12/13/17 19:00 07:00 Intake Total 660 ml 260 ml Balance 660 ml 260 ml Intake Oral 660 ml 260 ml # Voids 5 2 Height (Feet): 5 Height (Inches): 6.00 Weight (Pounds): 170 General Appearance: no apparent distress EENT: normal ENT inspection Neck: normal alignment, supple Cardiovascular: normal rate, regular rhythm Respiratory/Chest: lungs clear, normal breath sounds Abdomen: non tender, soft Edema: no edema noted Arm (L), no edema noted Arm (R), no edema noted Leg (L), no edema noted Leg (R), no edema noted Pedal (L), no edema noted Pedal (R), no edema noted Generalized Catalino Tinsley MD Dec 13, 2017 08:45
[2017-12-13] MEDS: Aspirin Baby 81mg ORAL SCH (08:47)
[2017-12-13] MEDS: Atenolol 25mg tab ORAL SCH (08:47)
[2017-12-13] MEDS: Enoxaparin 40mg Inj SUBQ SCH (08:48)
[2017-12-13 12:00] VITALS: BP 125/77
--- NOTE | 2017-12-13 13:22 | Discharge Instructions ---
Discharge Instructions Discharge Instructions Services at Discharge: day care Diet: 2 GM sodium (low sodium) Resume Normal Activity?: Yes Activity: light activity Follow Up Orders Complete Antibiotics per ID For Congestive Heart Failure Reminder Report to your physician any weight gain of 5 pounds or more in one week. Catalino Tinsley MD Dec 13, 2017 13:22
[2017-12-13] MEDS ORDERED: guaiFENesin w/Codeine 5ml Liq ud ORAL PRN (13:43)
--- NOTE | 2017-12-13 13:44 | Pulmonology Progress Note ---
Assessment/Plan Assessment/Plan COPD exacerbation probable acute bronchitis cxr negative VQ mismatching cough PLAN respiratory care without change consider Anoro 1 puff daily on dc with albuterol as needed complete 5 days of levaquin cards clearance ok for prednisone otherwise appears stable impression, plan, and exam edited and reviewed in detail care discussed with RN Subjective Allergies: Coded Allergies: No Known Allergies (Unverified , 12/09/17) Subjective care noted not congested but coughing has pain currently off oxygen Objective Last 24 Hour Vital Signs Date Time Temp Pulse Resp B/P (MAP) Pulse Ox O2 Delivery O2 Flow Rate FiO2 12/13/17 12:00 98.1 67 18 125/77 (93) 98 12/13/17 11:40 81 18 96 Room Air 21 12/13/17 11:32 82 18 95 Room Air 21 12/13/17 09:00 Room Air 12/13/17 08:55 100 18 97 Room Air 21 12/13/17 08:51 Room Air 21 12/13/17 08:50 95 Room Air 21 12/13/17 08:50 101 20 95 Room Air 21 12/13/17 08:47 79 118/67 12/13/17 08:00 97.8 79 20 118/67 (84) 94 12/13/17 04:27 98.0 86 17 100/63 (75) 92 12/13/17 04:00 Room Air 21 12/13/17 04:00 Room Air 21 12/13/17 04:00 98.0 86 17 100/63 (75) 92 12/13/17 00:00 97.9 71 18 124/75 (91) 92 12/12/17 22:42 Room Air 21 12/12/17 22:42 Room Air 21 12/12/17 21:00 Room Air 12/12/17 20:27 97.6 78 16 121/71 (88) 92 12/12/17 19:36 73 16 95 Room Air 21 12/12/17 19:23 73 18 93 Room Air 21 12/12/17 19:22 93 Room Air 21 12/12/17 19:22 Room Air 12/12/17 16:00 98.3 86 18 112/66 (81) 97 12/12/17 15:06 78 16 97 Room Air 21 12/12/17 14:56 75 16 95 Room Air 21 Intake and Output 12/12/17 12/13/17 19:00 07:00 Intake Total 660 ml 260 ml Balance 660 ml 260 ml Intake Oral 660 ml 260 ml # Voids 5 2 Objective WDWN NAD reduced breath sounds bilaterally without rhonchi or wheeze [id number] without MRG NABS nontender no HSM no CCE nonfocal Microbiology Date/Time Source Procedure Growth Status 12/10/17 14:40 Sputum Expectorated Gram Stain - Final Resulted 12/10/17 14:40 Sputum Expectorated Sputum Culture - Preliminary Resulted Current Medications Medications (Trade) Dose Ordered Sig/Palomo Route PRN Reason Start Time Stop Time Status Last Admin Dose Admin Acetaminophen (Tylenol) 650 mg Q4H PRN ORAL Mild Pain (Pain Scale 1-3) 12/11/17 12:00 01/09/18 07:59 12/13/17 00:10 Albuterol/ Ipratropium (Albuterol/ Ipratropium) 3 ml Q4HRT HHN 12/11/17 15:00 12/16/17 02:59 12/13/17 11:39 Aspirin (ASA) 81 mg DAILY ORAL 12/12/17 09:00 01/09/18 08:59 12/13/17 08:47 Atenolol (Tenormin) 25 mg DAILY ORAL 12/12/17 09:00 01/10/18 08:59 12/13/17 08:47 Clonazepam (KlonoPIN) 1 mg BEDTIME ORAL 12/12/17 21:00 12/19/17 20:59 12/12/17 20:06 Clotrimazole (Lotrimin) 1 applic THREE TIMES A DAY TOPIC 12/11/17 23:00 01/10/18 22:59 12/13/17 13:34 Dextrose (Dextrose 50%) 25 ml Q30M PRN IV Hypoglycemia 12/11/17 12:00 01/09/18 07:59 Dextrose (Dextrose 50%) 50 ml Q30M PRN IV Hypoglycemia 12/11/17 12:00 01/09/18 07:59 Enoxaparin Sodium (Lovenox) 40 mg Q24H SUBQ 12/12/17 09:00 01/09/18 08:59 12/13/17 08:48 Escitalopram Oxalate (Lexapro) 10 mg DAILY ORAL 12/12/17 13:15 11/28/18 13:14 12/13/17 08:46 Famotidine (Pepcid) 40 mg DAILY ORAL 12/12/17 09:00 01/09/18 08:59 12/13/17 08:47 Levofloxacin 150 ml @ 100 mls/hr Q24H IVPB 12/12/17 00:00 12/18/17 00:00 12/13/17 00:06 Lorazepam (Ativan) 1 mg BEDTIME PRN ORAL INSOMNIA 12/11/17 21:55 12/18/17 21:54 12/13/17 00:06 Ondansetron HCl (Zofran) 4 mg Q6H PRN IVP Nausea & Vomiting 12/11/17 12:00 01/09/18 11:59 Prednisone (predniSONE) 20 mg DAILY ORAL 12/13/17 09:00 01/12/18 08:59 12/13/17 08:46 Tramadol HCl (Ultram) 50 mg Q6H PRN ORAL For Moderate Pain 12/12/17 19:23 12/19/17 19:22 12/12/17 20:07 Duc Keene MD Dec 13, 2017 13:44
[2017-12-13] MEDS ORDERED: LEVAQUIN500 MG ORAL (13:57)
[2017-12-13] MEDS: traMADol 50mg tab ORAL PRN (14:03)
--- NOTE | 2017-12-13 14:20 | Infectious Diseases Prog Note ---
Assessment/Plan Problems: (1) Pneumonia Assessment & Plan: improving, with less cough productive and wheezing, continue levaquin empirically for four more days pending sputum culture . (2) Dyspnea Assessment & Plan: suspect due to the above, and due to anxiety , V/Q scan is negative for PE, continue levaquin to cover for pneumonia/bronchitis , continue inhalers as needed (3) COPD (chronic obstructive pulmonary disease) with acute bronchitis Assessment & Plan: improving on antibiotics, continue inhales and oxygen as needed (4) Panic anxiety syndrome Assessment & Plan: continue anxiety meds with ativan Subjective Constitutional: Reports: no symptoms HEENT: Reports: no symptoms Respiratory: Reports: no symptoms Breasts: Reports: no symptoms Cardiovascular: Reports: no symptoms Gastrointestinal/Abdominal: Reports: no symptoms Genitourinary: Reports: no symptoms Neurologic: Reports: no symptoms Psychiatric: Reports: no symptoms Skin: Reports: no symptoms Endocrine: Reports: no symptoms Hematologic: Reports: no symptoms Musculoskeletal: Reports: no symptoms Allergies: Coded Allergies: No Known Allergies (Unverified , 12/09/17) Objective Vital Signs Last 24 Hour Vital Signs Date Time Temp Pulse Resp B/P (MAP) Pulse Ox O2 Delivery O2 Flow Rate FiO2 12/13/17 12:00 98.1 67 18 125/77 (93) 98 12/13/17 11:40 81 18 96 Room Air 21 12/13/17 11:32 82 18 95 Room Air 21 12/13/17 09:00 Room Air 12/13/17 08:55 100 18 97 Room Air 21 12/13/17 08:51 Room Air 21 12/13/17 08:50 95 Room Air 21 12/13/17 08:50 101 20 95 Room Air 21 12/13/17 08:47 79 118/67 12/13/17 08:00 97.8 79 20 118/67 (84) 94 12/13/17 04:27 98.0 86 17 100/63 (75) 92 12/13/17 04:00 Room Air 21 12/13/17 04:00 Room Air 21 12/13/17 04:00 98.0 86 17 100/63 (75) 92 12/13/17 00:00 97.9 71 18 124/75 (91) 92 12/12/17 22:42 Room Air 21 12/12/17 22:42 Room Air 21 12/12/17 21:00 Room Air 12/12/17 20:27 97.6 78 16 121/71 (88) 92 12/12/17 19:36 73 16 95 Room Air 21 12/12/17 19:23 73 18 93 Room Air 21 12/12/17 19:22 93 Room Air 21 12/12/17 19:22 Room Air 12/12/17 16:00 98.3 86 18 112/66 (81) 97 12/12/17 15:06 78 16 97 Room Air 21 12/12/17 14:56 75 16 95 Room Air 21 Height (Feet): 5 Height (Inches): 6.00 Weight (Pounds): 170 General Appearance: WD/WN, no acute distress HEENT: normocephalic, atraumatic, anicteric, mucous membranes moist, PERRL, EOMI, pharynx normal, supple, no JVD Respiratory/Chest: chest wall non-tender, lungs clear, normal breath sounds, no respiratory distress, no accessory muscle use Cardiovascular: normal peripheral pulses, normal rate, regular rhythm, no gallop/murmur, no JVD Abdomen: normal bowel sounds, soft, non tender, no organomegaly, non distended , no mass, no scars Genitourinary: normal external genitalia Extremities: no cyanosis, no clubbing Skin: no rash, no lesions, no ulcers Neurologic/Psychiatric: alert, oriented x 3, responsive Lymphatic: no neck adenopathy, no groin adenopathy Musculoskeletal: normal muscle bulk, no effusion Microbiology Date/Time Source Procedure Growth Status 12/10/17 14:40 Sputum Expectorated Gram Stain - Final Resulted 12/10/17 14:40 Sputum Expectorated Sputum Culture - Preliminary Resulted Current Medications Medications (Trade) Dose Ordered Sig/Palomo Route PRN Reason Start Time Stop Time Status Last Admin Dose Admin Acetaminophen (Tylenol) 650 mg Q4H PRN ORAL Mild Pain (Pain Scale 1-3) 12/11/17 12:00 01/09/18 07:59 12/13/17 00:10 Albuterol/ Ipratropium (Albuterol/ Ipratropium) 3 ml Q4HRT HHN 12/11/17 15:00 12/16/17 02:59 12/13/17 11:39 Aspirin (ASA) 81 mg DAILY ORAL 12/12/17 09:00 01/09/18 08:59 12/13/17 08:47 Atenolol (Tenormin) 25 mg DAILY ORAL 12/12/17 09:00 01/10/18 08:59 12/13/17 08:47 Clonazepam (KlonoPIN) 1 mg BEDTIME ORAL 12/12/17 21:00 12/19/17 20:59 12/12/17 20:06 Clotrimazole (Lotrimin) 1 applic THREE TIMES A DAY TOPIC 12/11/17 23:00 01/10/18 22:59 12/13/17 13:34 Dextrose (Dextrose 50%) 25 ml Q30M PRN IV Hypoglycemia 12/11/17 12:00 01/09/18 07:59 Dextrose (Dextrose 50%) 50 ml Q30M PRN IV Hypoglycemia 12/11/17 12:00 01/09/18 07:59 Enoxaparin Sodium (Lovenox) 40 mg Q24H SUBQ 12/12/17 09:00 01/09/18 08:59 12/13/17 08:48 Escitalopram Oxalate (Lexapro) 10 mg DAILY ORAL 12/12/17 13:15 01/11/18 13:14 12/13/17 08:46 Famotidine (Pepcid) 40 mg DAILY ORAL 12/12/17 09:00 01/09/18 08:59 12/13/17 08:47 Guaifenesin/ Codeine Phosphate (Robitussin with codeine) 5 ml Q6H PRN ORAL For Cough 12/13/17 13:43 01/12/18 13:42 Levofloxacin 150 ml @ 100 mls/hr Q24H IVPB 12/12/17 00:00 12/18/17 00:00 12/13/17 00:06 Lorazepam (Ativan) 1 mg BEDTIME PRN ORAL INSOMNIA 12/11/17 21:55 12/18/17 21:54 12/13/17 00:06 Ondansetron HCl (Zofran) 4 mg Q6H PRN IVP Nausea & Vomiting 12/11/17 12:00 01/09/18 11:59 Prednisone (predniSONE) 20 mg DAILY ORAL 12/13/17 09:00 01/12/18 08:59 12/13/17 08:46 Tramadol HCl (Ultram) 50 mg Q6H PRN ORAL For Moderate Pain 12/12/17 19:23 12/19/17 19:22 12/13/17 14:03 Deonna Barkley M.D. Dec 13, 2017 14:20
--- NOTE | 2017-12-13 14:49 | Cardiology Report ---
APPROVED REPORT EXAM: Two-dimensional and M-mode echocardiogram with Doppler and color Doppler. INDICATION Chest Pain M-Mode DIMENSIONS IVSd1.3 (0.7-1.1cm)Left Atrium (MM)3.2 (1.6-4.0cm) LVDd4.8 (3.5-5.6cm)Aortic Root3.1 (2.0-3.7cm) PWd1.4 (0.7-1.1cm)Aortic Cusp Exc.1.8 (1.5-2.0cm) IVSs1.5 cm LVDs3.4 (2.5-4.0cm) PWs1.6 cm Normal left ventricular chamber size, systolic function and wall motion. Left ventricular ejection fraction estimated to be 60-65 %. No evidence of left ventricular hypertrophy . No evidence of pericardial effusion. All other cardiac chamber sizes are within normal limits. Focal aortic valve sclerosis with adequate cusp excursion. Thickened mitral valve leaflets with normal excursion. Mildly Mitral annulus and aortic root calcification. Pulmonic valve not well visualized. Normal tricuspid valve structure. IVC at normal size with physiological collapse . A color flow and spectral Doppler study was performed and revealed: Mild aortic regurgitation. Trace mitral regurgitation. Mild abnormal diastolic function . Mild tricuspid regurgitation. Tricuspid systolic velocities suggests peak right ventricular systolic pressure of 22mmHg.
--- NOTE | 2017-12-13 23:27 | General Progress Note ---
Assessment/Plan Problem List: (1) Panic anxiety syndrome ICD Codes: F41.0 - Panic disorder [episodic paroxysmal anxiety] SNOMED: 768603357 Status: stable, progressing Assessment/Plan lexapro 10mg q daily klonopin 1mg qhs provided ro/st Subjective Date patient seen: Dec 13, 2017 Neurologic/Psychiatric: Reports: anxiety, depressed, emotional problems, headache Allergies: Coded Allergies: No Known Allergies (Unverified , 12/09/17) Objective Last 24 Hour Vital Signs Date Time Temp Pulse Resp B/P (MAP) Pulse Ox O2 Delivery O2 Flow Rate FiO2 12/13/17 14:53 75 20 98 Room Air 21 12/13/17 14:48 73 20 98 Room Air 21 12/13/17 14:33 98.1 12/13/17 12:00 98.1 67 18 125/77 (93) 98 12/13/17 11:40 81 18 96 Room Air 21 12/13/17 11:32 82 18 95 Room Air 21 12/13/17 09:00 Room Air 12/13/17 08:55 100 18 97 Room Air 21 12/13/17 08:51 Room Air 21 12/13/17 08:50 95 Room Air 21 12/13/17 08:50 101 20 95 Room Air 21 12/13/17 08:47 79 118/67 12/13/17 08:00 97.8 79 20 118/67 (84) 94 12/13/17 04:27 98.0 86 17 100/63 (75) 92 12/13/17 04:00 Room Air 21 12/13/17 04:00 Room Air 21 12/13/17 04:00 98.0 86 17 100/63 (75) 92 12/13/17 00:00 97.9 71 18 124/75 (91) 92 Intake and Output 12/12/17 12/13/17 18:59 06:59 Intake Total 660 ml 260 ml Balance 660 ml 260 ml Intake Oral 660 ml 260 ml # Voids 5 2 Height (Feet): 5 Height (Inches): 6.00 Weight (Pounds): 170 General Appearance: WD/WN, alert, mild distress Neurologic: oriented x 3, responsive, depressed affect Mick Trujillo MD Dec 13, 2017 23:27
--- NOTE | 2017-12-14 13:07 | Discharge Summary ---
Discharge Summary Discharge Summary _ DATE OF ADMISSION: 12/10/2017 DATE OF DISCHARGE: 12/13/2017 REASON FOR ADMISSION: 67 years old female with past medical history of hypertension, asthma/COPD, presented to emergency room for evaluation due to shortness of breath. Patient reported shortness of breath for the last 2-3 weeks. Patient also reported productive cough. Patient initially required placement on 100% nonrebreathing mask. Vital signs revealed tachycardia. Patient saturated 100% on nonrebreather mask. Laboratory workup revealed potassium 3.4, bicarbonate 23, BUN 16, creatinine 1.3. Troponin negative . Pro BNP 271. ECG with sinus tachycardia 106, no acute ischemic changes. No leukocytosis, stable hemoglobin and hematocrit. Lactic acid 5.9 Urine toxicology screen was negative Chest x-ray revealed no focal consolidation. Patient admitted with diagnoses of shortness of breath, possible pneumonia, COPD/asthma with exacerbation, chest pain, rule out acute coronary syndrome, acute kidney injury versus chronic kidney disease, hypertension, cough. CONSULTANTS: land checker Dr. Vaughan pulmonary Dr. Keene ID specialist Dr. Barkley psychiatrist [facility] COURSE: Patient admitted. Cardiology consult was requested to rule out acute coronary syndrome. Patient started on antiplatelet therapy with aspirin, beta nancy and statin. Nitroglycerin was on board as needed. Echocardiogram revealed preserved ejection fraction of 60-65% and right ventricular systolic pressure of 22. Troponin was negative. EKG and telemetry revealed no acute ischemic changes. Patient was ruled out for acute OH. Outpatient stress test recommended by land checker. Blood pressure was closely monitored and remained stable with current regimen of beta nancy. Creeler closely followed. Supplemental oxygen titrated to keep pulse oximetry above 92%. Patient started on IV steroid, which tapered and discontinued prior to discharge. Empiric antilithic provided. Antitussive provided as needed. Patient was able to be weaned off 100% nonrebreathing mask to Venturi mask, then to nasal cannula . Prior to discharge was on room air with stable pulse oximetry. VQ scan showed ventilation perfusion mismatch. However clinically patient improved: pulse oximetry stable on room air, tachycardia resolved ,no chest pain . Low suspicion for pulmonary embolism. DVT and GI prophylaxis provided. Patient was on empiric antibiotic. Infectious disease specialist followed. Blood culture were negative. Influenza screen test was negative. Sputum culture was negative. Infectious disease doctor recommended to complete course of antibiotics at home. Patient started on the IV fluids. Renal parameters and electrolytes were closely monitored. Electrolytes corrected as needed. Nephrotoxins were avoided.. Prior to discharge BUN 19 ,creatinine 0.9. Supportive care provided. Bowel regimen instituted. Psychiatrist closely followed and diagnosed patient with panic anxiety syndrome. Psychiatric medication regimen optimized. Reality orientation and supportive therapy provided. Patient clinically improved and was able for discharge to [facility] facility for short-term rehabilitation. FINAL DIAGNOSES: Chest pain, likely due to COPD exacerbation/acute bronchitis COPD exacerbation Probably acute bronchitis Possible pneumonia VQ mismatch Hypertension Chronic anxiety syndrome Acute kidney injury resolved DISCHARGE MEDICATIONS: See Medication Reconciliation list. DISCHARGE INSTRUCTIONS: Patient was discharged to the [facility] facility. Follow up with medical doctor at the facility. I have been assigned to dictate discharge summary for this account. I was not involved in the patient's management. Nicky Villegas NP Dec 14, 2017 13:07
== END 2017-12-13 15:30 | DRG 140 ==
LOC: EDBD → EMR 00:03 → 2E 04:00 → EDBEDREQ 04:35 → 3E 12-11 11:25
DX: J44.1 Chronic obstructive pulmonary disease with (acute) exacerbation (principal); N17.9 Acute kidney failure, unspecified; J18.9 Pneumonia, unspecified organism; J20.9 Acute bronchitis, unspecified; J44.0 Chronic obstructive pulmonary disease with (acute) lower respiratory infection; I10 Essential (primary) hypertension; G47.00 Insomnia, unspecified; F41.0 Panic disorder [episodic paroxysmal anxiety]; R94.2 Abnormal results of pulmonary function studies
CPT/HCPCS: 36415; 71045; 78579; 78580; 80048; 80053; 80307; 82550; 82553; 83605; 83690; 83880; 84484; 85025; 86710; 87040; 87070; 87205; 93306; 94640; 94664; 94760; 96361; 96365; 96375; 99285; A9503; J7620; J8499